=== PATIENT | female | born 1945 | race Caucasian/White ===

== ENCOUNTER 2020-01-25 22:05 | Inpatient (IN) | payer MEDICARE, MEDICAID, SELFPAY ==
--- NOTE | ~2020-01-25 | CT_ITS ---
EXAMINATION: CT brain wo con DATE: 01/25/2020 22:45 INDICATION: Fall with head injury TECHNIQUE: Computed tomography (CT) of the head was performed without intravenous contrast. Sagittal and coronal reconstructions were performed. The mA was adjusted according to patient size. Iterative reconstruction technique was employed. The dose-length product was 681.00 mGy-cm. COMPARISON: head CT dated 02/03/2014 FINDINGS: No fracture. No acute intracranial hemorrhage, acute infarction or abnormal extra axial fluid collect ion. There is mild to moderate scattered white matter hypoattenuation consistent with chronic small v essel ischemic disease. Symmetric prominence of the sulci consistent with moderate age-appropriate di ffuse cerebral volume loss. Ventricles are normal and symmetric. No mass/mass effect. Changes of bila teral intraocular lens replacement. The orbits and mastoid air cells are normal. Mild mucosal thicken ing in the ethmoid sinuses. Intracranial calcified cerebral atherosclerosis is noted. IMPRESSION: 1. No fracture or acute intracranial process. 2. Age-related changes including moderate volume loss and mild to moderate scattered white matter hyp oattenuation consistent with chronic small vessel ischemic disease. Reviewed, dictated and finalized at location A. S DELIVERY DRIVER IMPRESSION: 1. No fracture or acute intracranial process. 2. Age-related changes including moderate volume loss and mild to moderate scat tered white matter hypoattenuation consistent with chronic small vessel ischemi c disease.
--- NOTE | ~2020-01-25 | XR_ITS ---
EXAMINATION: XR surgery orthopedic DATE: 01/26/2020 13:57 INDICATION: Internal fixation intertrochanteric right femoral fracture TECHNIQUE: 4 fluoroscopic spot images of the right femur were obtained during procedure performed by Dr. Rivera. Radiologist was not present for the imaging or procedure. The amount of fluoroscopy time used during this procedure was 3.8 minutes. COMPARISON: 01/25/2020 FINDINGS: Internal reduction and internal fixation of a mildly comminuted intertrochanteric fracture the proxim al right femur with an intratrochanteric kwame, femoral neck dynamic compression screw and distal inter locking screw. Alignment appears essentially anatomic. Mild right hip osteoarthritis. IMPRESSION: 1. Near-anatomic alignment post reduction and internal fixation of a comminuted intratrochanteric fra cture of the proximal right femur. Reviewed, dictated and finalized at location A. H INSPECTOR IMPRESSION: 1. Near-anatomic alignment post reduction and internal fixation of a comminuted intratrochanteric fracture of the proximal right femur.
--- NOTE | ~2020-01-25 | XR_ITS ---
EXAMINATION: XR hip RT 2V w AP pelvis, XR femur RT min 2V DATE: 01/25/2020 23:05 INDICATION: Right hip and femur pain post fall TECHNIQUE: 1. Anteroposterior view of the pelvis and anteroposterior and cross-table lateral views of the right hip were obtained. 2. AP and lateral views of the right femur were obtained on overlapping proximal and distal radiograp hs. COMPARISON: 02/03/2014 FINDINGS: Mildly comminuted intertrochanteric fracture the proximal right femur. This includes an oblique fract ure extending from the greater to the lesser trochanter with minimal varus angulation resulting in ap proximately 3 mm separation of the fracture plane at its medial margin and 8 mm separation at the lat eral margin. Additional fracture line extends across the base of the lesser trochanter with mild prox imal and medial distraction of the lesser trochanteric fragment from which arises a small enthesophyt e. Right femoral head remains normally located within the right acetabulum. Mild bilateral hip osteoa rthritis. No fracture in the more distal right femur. There is additional mild osteoarthritis at the right knee. No evident knee joint effusion. Additional enthesophytes at the anterior margin of the pa tella. Severe lumbar spondylosis. Scattered vascular calcifications in the pelvis and bilateral thigh s. IMPRESSION: 1. Mildly displaced, minimally angulated comminuted intertrochanteric fracture the proximal right fem ur. Reviewed, dictated and finalized at location A. ER SCREEN INSTALLER IMPRESSION: 1. Mildly displaced, minimally angulated comminuted intertrochanteric fracture the proximal right femur.
[2020-01-25 22:06] VITALS: BP 157/57; PULSE 60; RESP 23; O2SAT 100
--- NOTE | 2020-01-25 22:10 | ED.FALL ---
HPI - Fall General Chief Complaint: Fall Stated Complaint: fall Time Seen by Provider: 01/25/20 22:09 Source: patient and RN notes reviewed Mode of arrival: EMS Limitations: no limitations History of Present Illness HPI Narrative: Pt is a 74 y/o female who presents to the ED via EMS with c/o fall happening this evening. She notes that her niece's 120 pound dog ran into her causing her to fall this evening. Pt states that she landed on the rt side of her body and struck her head on the floor during the fall. She denies any LOC during the fall. Pt reports rt hip pain radiating down her rt leg and numbness in her bilateral hands s/p the fall. She states that she is unable to walk due to her pain. Pt denies any buttock pain, neck pain, back pain, CP, or SOB. She notes that she is currently taking an anti-platelet medication as well as ASA. MD complaint: fall Fall from: standing Place fall occurred: home Loss of consciousness: none Symptoms prior to fall: none Context: other (struck by dog) Location of injury: head Location of injury - extremities: Right: thigh (rt hip) Associated symptoms (after fall): numbness (bilateral hands), unable to walk and other (rt hip pain radiating down rt leg) Related Data Allergies Allergy/AdvReac Type Severity Reaction Status Date / Time No Known Allergies Allergy Mild Verified 01/25/20 22:11 Review of Systems Review of Systems: Narrative: EYES: Denies visual changes, redness, or discharge. CARDIOVASCULAR: Denies chest pain, palpitations, or edema. RESPIRATORY: Denies cough or dyspnea. GASTROINTESTINAL: Denies abdominal pain, nausea, vomiting, or diarrhea. MUSCULOSKELETAL: Denies back pain, neck pain, or buttock pain. Reports rt hip pain radiating down rt leg. NEUROLOGIC: Denies headache, weakness, or LOC. Reports head injury, numbness in bilateral hands, and difficulty walking. All systems reviewed & are unremarkable except as noted in HPI and below PMFSH Past Medical History Medical History Anxiety Arthritis Asthma Back pain CAD (coronary artery disease) Cataracts, bilateral CHF (congestive heart failure) Diabetes History of angina HLD (hyperlipidemia) HTN (hypertension) Peripheral neuropathy Pneumonia Surgical History Surgical History History of coronary artery stent placement Hx of cardiac catheterization Hx of cataract surgery bilateral eyes Social History Social History Smoking status: Never smoker Exam Narrative: Exam Narrative: GENERAL: Well-appearing, well-nourished, and in no acute distress. HEAD: Normocephalic, atraumatic. EYES: PERRLA and EOMI. ENT: Nares clear, no rhinorrhea or epistaxis. Mucous membranes moist. NECK: Supple. No cervical spine tenderness. CHEST: Clear to auscultation. No respiratory distress. HEART: Regular rate and rhythm. No murmur heard. Normal peripheral pulses. ABDOMEN: Soft, nontender, nondistended, normal active bowel sounds. EXTREMITIES: Normal range of motion. No edema. Ecchymosis on middle rt digit at proximal interphalangeal joint. Orchestrator strength out of 5. No deformity to the right middle finger. Radial pulse 2+. Pain with internal and external rotation of rt hip. Rt hip tenderness. DP pulse 2+. Intact distal sensation. SPINE: No cervical tenderness. SKIN: Warm, dry, no rash. NEURO: No focal deficits. Alert and oriented. Course Course Emergency Course: Patient presents to the emergency department for evaluation of a fall after she was knocked down by a large dog. Patient states she did hit her head, but denies loss of consciousness. She denies any vision changes, head or neck pain, only reporting right leg pain. No obvious limb length discrepancy. There is pain with internal and external rotation of the right hip. I did not attempt any range of motion exercises with concern for hip fracture. Coco
--- NOTE | 2020-01-25 22:15 | ECG_ITS ---
Measurements Intervals [place] Rate: 60 P: 23 MO: 174 QRS: 20 QRSD: 124 T: 30 QT: 443 QTc: 443 Interpretive Statements ELECTRONIC ATRIAL PACEMAKER RIGHT BUNDLE BRANCH BLOCK BASELINE WANDER- I, II ABNORMAL ECG Electronically Signed On 01-26-2020 9:01:17 SCALE ATTENDANT by Polo Sanchez D.O.
[2020-01-25 22:27] LABS: Glucose Point of Care 140 (65-105)
[2020-01-25] MEDS: ONDANSETRON INJ 4 MG/2 ML VIAL IV PUSH (22:35)
[2020-01-25] MEDS: MORPHINE SULFATE 4 MG/ML INJ IV PUSH (22:35)
[2020-01-25] MEDS: SODIUM CHLORIDE 0.9% IV 1,000 ML 999 ML IV CONT (22:36)
[2020-01-25 22:37] LABS: Basophils Percent Auto 0.3 % (0.2-1.2); Eosinophils Absolute Auto 0.1 K/mm3 (0-0.3); Eosinophils Percent Auto 0.6 % (0-4.4); Hematocrit 32.6 % (37.0-47.0); Hemoglobin 10.3 g/dL (12.0-15.0); Immature Granulocyte Absolute 0.05 K/mm3 (0.00-0.031); Immature Granulocyte Percent A 0.5 % (0-0.5); Lymphocytes Absolute Auto 3.24 K/mm3 (0.9-3.2); Lymphocytes Percent Auto 33.6 % (18.3-44.2); Mean Corpuscular HGB Conc 31.6 g/dl (32-36); Mean Corpuscular Hemoglobin 26.3 pg (26-34); Mean Corpuscular Volume 83.4 fl (80-100); Monocytes Absolute Auto 0.9 K/mm3 (0.1-0.6); Monocytes Percent Auto 8.9 % (2.6-8.5); Neutrophils Absolute Auto 5.4 K/mm3 (1.3-6.7); Neutrophils Percent Auto 56.1 % (45.5-73.1); Platelet Count Result 176 k/mm3 (150-375); Red Blood Count 3.91 M/mm3 (4.2-5.4); Red Cell Distribution Width 18.2 % (11.5-14.5); White Blood Count 9.6 K/mm3 (4.5-10.0)
[2020-01-25 22:47] LABS: Prothrombin Time 12.8 Seconds (11.1-14.7)
[2020-01-25 22:48] LABS: Partial Thromboplastin Time 30.2 SECONDS (22.3-36.8)
[2020-01-25 22:50] LABS: Blood Urea Nitrogen 21 mg/dL (7-17); Calcium 9.4 mg/dL (8.4-10.2); Carbon Dioxide 23 mmol/L (22-30); Chloride 102 mmol/L (98-107); Estimated Glomerular Filt Rate 55; Glucose 124 mg/dL (65-105); Potassium 4.2 mmol/L (3.4-5.0); Sodium 138 mmol/L (137-145)
[2020-01-25 23:21] VITALS: BP 135/56; PULSE 60; RESP 14; O2SAT 98
[2020-01-25 23:55] VITALS: BP 137/95; PULSE 61; RESP 18; O2SAT 98
[2020-01-26] VITALS (15 sets, daily range): BP systolic 116–148; BP diastolic 41–96; PULSE 59–71; RESP 12–21; TEMP 36.3–37.3; O2SAT 94–100; BMI 29.7
--- NOTE | 2020-01-26 00:24 | PC.NURSE ---
this rn called seng, pt rachid, to give update on pt. [phone]
--- NOTE | 2020-01-26 00:56 | ADMGEN ---
This patient, Venus Hung, was admitted to [facility] Surg Room 312-01. Patient/family oriented to hospital policies and general routines including ID bracelet, bed and alarms, visiting hours, pain management, procedures, bathroom and other care routines, personal items, smoking policy, room service/diet, and visiting hours. Valuables list has been completed. Information on how to activate the Rapid Response Team has been discussed. Patient/Family are encouraged to report perceived risks to care and to ask questions if they do not understand what they are told or what they should do.
[2020-01-26] MEDS: MORPHINE SULFATE 4 MG/ML INJ IV PUSH ×3 (01:04→09:27)
[2020-01-26] MEDS: LACTATED RINGERS 1,000 ML 125 ML IV CONT ×2 (01:10→09:26)
--- NOTE | 2020-01-26 08:09 | PM.CNOR ---
Assessment and Plan Assessment and plan (1) Intertrochanteric fracture of right femur: Qualifiers: Encounter type: initial encounter Fracture type: closed Fracture alignment: displaced Qualified Code(s): S72.141A - Displaced intertrochanteric fracture of right femur, initial encounter for closed fracture Code(s): S72.141A - Displaced intertrochanteric fracture of right femur, initial encounter for closed fracture Status: Acute Assessment and Plan: Right hip intertrochanteric fracture status post fall. No prior problems with the right hip. Does have peripheral neuropathy pre-existing. History of diabetes and coronary artery disease. Discussed nonoperative and operative treatment options with the patient. Risks and benefits of each as well as alternatives were reviewed. All of the patient's questions were answered. The risks of surgery reviewed including but not limited to: Neurovascular damage, wound complication, infection, blood clot, pulmonary embolus, stroke, myocardial infarction, and anesthetic risks up to and including . Continued pain and possible dysfunction were explained. Specific risks of the procedure including later recurrence of deformity. No guarantees were offered. If hardware used, discussed risk of failure/ breakage and possible need for removal. If complications occur, the patient understands the need for further treatment, possible further surgery. Patient verbalizes understanding and wishes to proceed. PLAN: Right hip repair with intramedullary hip screw. Patient will require general medical and most likely cardiac clearance. DVT prophylaxis with sequential compression devices. Pain control in the interim. Await medical clearance. (2) Fall: Qualifiers: Encounter type: initial encounter Qualified Code(s): W19.XXXA - Unspecified fall, initial encounter Code(s): W19.XXXA - Unspecified fall, initial encounter Status: Acute (3) CAD (coronary artery disease): Qualifiers: Coronary Disease-Associated Artery/Lesion type: due to calcified coronary lesion Qualified Code(s): I25.10 - Atherosclerotic heart disease of [place] coronary artery without angina pectoris; I25.84 - Coronary atherosclerosis due to calcified coronary lesion Code(s): I25.10 - Atherosclerotic heart disease of [place] coronary artery without angina pectoris Status: Acute History of Present Illness HPI Consult date: 01/26/20 Requesting physician: Angelia Zuluaga MD Consult reason: fracture (Right hip) Chief complaint: right proximal femur fracture Narrative: 74-year-old tripped over walking the dog last evening. Fell on the right side. Injured right hip. Unable to bear weight. Denies head neck or back injury. Denies loss of consciousness. Complains of right hip pain. Worse when she tries to move the leg. Has some numbness in both feet from neuropathy. No new numbness or tingling. Review of Systems Constitutional: Constitutional: Denies fever(s) Eyes: Eyes: Denies blurry vision ENT: Reports Normal hearing present Cardiovascular: Cardiovascular: Denies chest pain and Denies dyspnea Respiratory: Respiratory: Denies dyspnea and Denies wheezing Gastrointestinal: Gastrointestinal: Denies abdominal pain Genitourinary: Genitourinary: Denies urinary urgency Musculoskeletal: Musculoskeletal: Reports as per HPI and Denies numbness Integumentary/Breasts: Skin/Breast: Denies changing lesions and Denies sores Neurologic: Reports Normal hearing present, Denies behavioral changes, Denies confusion, Denies numbness and Denies convulsions Psychiatric: Psychiatric: Denies behavioral changes, Denies confusion and Denies hallucinations Endocrine: Endocrine: Denies heat intolerance Hematologic/Lymphatic: Hematologic/Lymphatic: Denies easy bleeding Allergic/Immunologic: Allergic/Immunologic: Denies wheezing PMFSH Past Medical History Medical History
--- NOTE | 2020-01-26 08:48 | PM.IMHP ---
H&P: HPI History of Present Illness Chief complaint: right proximal femur fracture Narrative: Date and Time of Service of History & Physical: January 26, 2020 at 8:20 a.m. Date and Time of Admission Order: January 26, 2020 at 12:08 a.m. Chief Complaint: Right hip pain after fall. History or Present Illness: Venus Hung is a 74 year old female with extensive coronary artery disease having had 14 stents previously placed as well as pacemaker, diabetes mellitus, hypertension, hyperlipidemia and chronic kidney disease who presented to the emergency room via EMS with complaint of right hip pain and inability to move after fall. Patient reports she was in her usual state of health yesterday. She notes her niece lives with her and has 2 large black Labrador retrievers. Patient reports the 120 lb Labrador shoved her against the wall when apparently she was not getting food out fast enough for him. Patient reports she fell on the floor and hit her head. No loss of consciousness. She reports she instantly had pain in the right hip and was unable to move. She did not feel lightheaded, have chest pain or shortness of breath prior to incident. She is followed by Dr. Nation at [facility] in [place] for her coronary artery disease. She reports she has previously not been allowed to have an elective colonoscopy because of need for anesthesia with her heart disease. In the emergency room, she was noted to have mildly displaced, minimally angulated comminuted intertrochanteric fracture of the proximal right femur. Orthopedics was consulted. Patient was admitted for further evaluation and treatment. Of note, she does report having had some chest heaviness when being moved from the ER stretcher to her current bed. She did use nitroglycerin at that time. No current chest pain or shortness of breath. Review of Systems Review of Systems: All systems reviewed & are unremarkable except as noted in HPI and below Constitutional: Constitutional: Denies chills and Denies fever(s) Eyes: Eyes: Denies blurry vision and Denies diplopia ENT: Denies dysphagia and Denies sore throat Cardiovascular: Cardiovascular: Denies chest pain, Denies leg edema, Denies lightheadedness and Denies palpitations Respiratory: Respiratory: Denies cough, Denies dyspnea and Denies wheezing Gastrointestinal: Gastrointestinal: Denies abdominal pain, Denies constipation, Denies diarrhea, Denies nausea and Denies vomiting Genitourinary: Genitourinary: Denies hematuria, Denies nocturia and Denies dysuria Musculoskeletal: Musculoskeletal: Reports arthralgias (right hip) Integumentary/Breasts: Skin/Breast: Denies rash Psychiatric: Psychiatric: Denies anxiety, Denies confusion and Denies depression Endocrine: Endocrine: Reports no additional endocrine complaints Hematologic/Lymphatic: Hematologic/Lymphatic: Reports no additional hematologic/lymphatic complaints Allergic/Immunologic: Allergic/Immunologic: Reports no additional allergic/immunologic complaints [facility] Past Medical History Medical History (Updated 01/26/20 @ 09:23 by Angelia Suarez MD) Anxiety Arthritis Asthma Back pain CAD (coronary artery disease) Cataracts, bilateral CHF (congestive heart failure) Diabetes History of angina HLD (hyperlipidemia) HTN (hypertension) Intertrochanteric fracture of right femur Peripheral neuropathy Pneumonia Surgical History Surgical History History of coronary artery stent placement Has 14 stents History of permanent cardiac pacemaker placement Hx of cardiac catheterization Hx of cataract surgery bilateral eyes Family History Family History Mother Cervical cancer Sibling Diabetes mellitus Sibling Diabetes mellitus Social History Social History Social History: Patient is .
[2020-01-26] MEDS: ISOSORBIDE MONONITRATE 30 MG TAB.ER.24H PO ×2 (09:30→17:56)
[2020-01-26] MEDS: METOPROLOL SUCCINATE EXT REL 25 MG TABCR PO (09:32)
[2020-01-26 09:42] LABS: Glucose Point of Care 109 (65-105)
--- NOTE | 2020-01-26 10:00 | PM.CNCAR ---
Assessment and Plan Assessment and plan (1) Preoperative clearance: Code(s): Z01.818 - Encounter for other preprocedural examination Status: Acute Assessment and Plan: I did personally speak with her primary director of adult epilepsy Dr. Aleksandar Nation. She does have several stents but last catheterization 2017 showed patent stents. She had a stress test in 2018 showed normal ejection fraction 72% with no ischemia. She has stable symptoms of angina that has not been worsening and she has no heart failure symptoms. At this point I put her at moderate risk of perioperative cardiovascular complications. Continue current cardiac regimen without change. She does not need ischemic workup prior to undergoing her surgery. (2) CAD (coronary artery disease): Qualifiers: Coronary Disease-Associated Artery/Lesion type: due to calcified coronary lesion Qualified Code(s): I25.10 - Atherosclerotic heart disease of [place] coronary artery without angina pectoris; I25.84 - Coronary atherosclerosis due to calcified coronary lesion Code(s): I25.10 - Atherosclerotic heart disease of [place] coronary artery without angina pectoris Status: Acute Assessment and Plan: As detailed above. Continue current meds. Will check a 2D echocardiogram Doppler (3) HLD (hyperlipidemia): Qualifiers: Hyperlipidemia type: unspecified Qualified Code(s): E78.5 - Hyperlipidemia, unspecified Code(s): E78.5 - Hyperlipidemia, unspecified Status: Acute Assessment and Plan: On statin (4) HTN (hypertension): Qualifiers: Hypertension type: essential hypertension Qualified Code(s): I10 - Essential (primary) hypertension Code(s): I10 - Essential (primary) hypertension Status: Acute Assessment and Plan: At goal History of Present Illness History of Present Illness Consult date/time: 01/26/20 10:00 Requesting physician: Angelia Zuluaga MD Consult reason: pre-op evaluation and Other (CAD) Reason For Visit: right proximal femur fracture Narrative: Date of service 01/26/2020 History: Patient is a 74-year-old female who follows with Dr. Aleksandar Nation at [facility]. She has a known history of extensive coronary disease in numerous stenting in the past. She also has a pacemaker, diabetes, hypertension hyperlipidemia chronic kidney disease. I did personally speak with earlier today. She did have a catheterization 2017 which showed patent stents. Past stress tests in 2018 was without ischemia with ejection fraction of 72%. She does have chronic stable angina. Unfortunately yesterday she was pushed down by her Labrador and fell on the floor. Unfortunately she did sustain a mildly displaced angulated inter trochanteric fracture of the right femur. Cardiology consultation was requested for further assessment evaluation of her risk for surgery. Patient does state that she has angina and takes nitroglycerin about every other day. It is stable in occurrence an occurs whenever she is active in doing things such as climbing stairs. It has not worsened in severity nor has it become more frequent with less activity. She also describes no heart failure symptoms. She otherwise denies any syncope, presyncope, paroxysmal nocturnal dyspnea, orthopnea, edema or palpitations. EKG shows atrial paced rhythm with a right bundle branch block but no acute ST or T-wave abnormalities. Review of Systems Review of Systems: All systems reviewed & are unremarkable except as noted in HPI and below Constitutional: Constitutional: Denies fatigue Eyes: Eyes: Denies blurry vision ENT: Denies epistaxis Cardiovascular: Cardiovascular: Reports chest pain and Denies leg edema Respiratory: Respiratory: Denies dyspnea Gastrointestinal: Gastrointestinal: Denies abdominal pain Genitourinary: Genitourinary: Denies hematuria and Denies flank pain Musculoskeletal: Musculoskeletal: Denies back pain
[2020-01-26 11:24] LABS: Hemoglobin A1C 6.7 % (<5.7)
--- NOTE | 2020-01-26 11:54 | PC.NURSE ---
Pt to Pre-op per bed. IV 18 RW SL.
[2020-01-26] MEDS: LACTATED RINGERS 1,000 ML 30 ML IV CONT (12:05)
--- NOTE | 2020-01-26 12:26 | WPDANESEPPF ---
Anes - Initial Pre Proc Eval Procedure: Operation Date: 01/26/20 13:00 Proposed Procedures p Right Hip, Intramedullary Screw(Right) - Terry Rivera MD Date/Time: 01/26/20 12:26 Surgeon: Hoda Charles DO Pre Op Diagnosis: right proximal femur fracture Patient Data Age: 74 Gender: F Height: 5 ft 6 in Weight: 83.7 kg Last Vital Signs Temp 37.2 C 01/26/20 06:00 Pulse 63 01/26/20 09:32 Resp 18 01/26/20 06:00 BP 126/55 L 01/26/20 06:00 Pulse Ox 100 01/26/20 06:00 Allergies Allergy/AdvReac Type Severity Reaction Status Date / Time No Known Allergies Allergy Mild Verified 01/25/20 22:11 Home Medications Medication Instructions Recorded Confirmed Type ascorbic acid (vitamin C) [Vitamin 250 mg PO DAILY 01/26/20 01/26/20 History C] aspirin 81 mg PO DAILY 01/26/20 01/26/20 History atorvastatin 80 mg PO HS 01/26/20 01/26/20 History calcium carbonate-vitamin D3 1 tablet PO DAILY 01/26/20 01/26/20 History [Calcium 600 with Vitamin D3] cholecalciferol (vitamin D3) 125 mcg PO DAILY 01/26/20 01/26/20 History [Vitamin D3] cyanocobalamin (vitamin B-12) 1,000 mcg PO DAILY 01/26/20 01/26/20 History [Vitamin B-12] empagliflozin [Jardiance] 10 mg PO QAM 01/26/20 01/26/20 History gabapentin 100 mg PO DAILY PRN 01/26/20 01/26/20 History isosorbide mononitrate 30 mg PO BID 01/26/20 01/26/20 History metformin 500 mg PO BID 01/26/20 01/26/20 History metoprolol succinate 25 mg PO DAILY 01/26/20 01/26/20 History nitroglycerin 1 spray SUBLINGUAL Q5M PRN 01/26/20 01/26/20 History omega 7-onw-ohg-fish oil [Fish Oil] 1 cap PO BID 01/26/20 01/26/20 History prasugrel 10 mg PO DAILY 01/26/20 01/26/20 History ranolazine 1,000 mg PO Q12H 01/26/20 01/26/20 History Laboratory Tests 01/25/20 01/25/20 01/25/20 22:24 22:31 22:31 WBC 9.6 K/mm3 K/mm3 (4.5-10.0) RBC 3.91 M/mm3 L M/mm3 (4.2-5.4) Hgb 10.3 g/dL L g/dL (12.0-15.0) Hct 32.6 % L % (37.0-47.0) MCV 83.4 fl fl (80-100) MCH 26.3 pg pg (26-34) MCHC 31.6 g/dl L g/dl (32-36) RDW 18.2 % H % (11.5-14.5) Plt Count 176 k/mm3 k/mm3 (150-375) MPV 11.0 fl H fl (7.4-10.4) Immature Gran % (Auto) 0.5 % % (0-0.5) Neut % (Auto) 56.1 % % (45.5-73.1) Lymph % (Auto) 33.6 % % (18.3-44.2) [place] % (Auto) 8.9 % H % (2.6-8.5) Eos % (Auto) 0.6 % % (0-4.4) Baso % (Auto) 0.3 % % (0.2-1.2) Lymph # (Auto) 3.24 K/mm3 H K/mm3 (0.9-3.2) [place] # (Auto) 0.9 K/mm3 H K/mm3 (0.1-0.6) Eos # (Auto) 0.1 K/mm3 K/mm3 (0-0.3) Baso # (Auto) 0.0 K/mm3 K/mm3 (0.0-0.1) Abs Immat Gran (auto) 0.05 K/mm3 H K/mm3 (0.00-0.031) Absolute Neuts (auto) 5.4 K/mm3 K/mm3 (1.3-6.7) Absolute Nucleated RBC 0.0 K/mm3 K/mm3 (0.0-0.012) Nucleated RBC % 0.0 % % (0.0-0.2) PT 12.8 Seconds Seconds (11.1-14.7) INR 1.0 APTT 30.2 SECONDS SECONDS (22.3-36.8) Sodium Potassium Chloride Carbon Dioxide BUN Creatinine Estim Creat Clear Calc Estimated GFR Glucose POC Capillary Glucose 140 mg/dl H mg/dl (65-105) Hemoglobin A1c Calcium 01/25/20 01/25/20 01/26/20 22:31 22:31 09:37 WBC RBC Hgb Hct MCV MCH MCHC RDW Plt Count MPV Immature Gran % (Auto) Neut % (Auto) Lymph % (Auto) [place] % (Auto) Eos % (Auto) Baso % (Auto) Lymph # (Auto) [place] # (Auto) Eos # (Auto) Baso # (Auto) Abs Immat Gran (auto) Abso
[2020-01-26] MEDS: IBUPROFEN IV 800 MG/200 ML 800 MG/200 ML BAG 400 MG IVPB (12:30)
[2020-01-26] MEDS: ceFAZolin 2 GM/D5W 50 ML 2 GM/50 ML BAG IVPB (12:54)
[2020-01-26] MEDS: BUPIVACAINE/EPINEPHRINE 0.5% 30 ML VIAL INFILTRATE (13:35)
--- NOTE | 2020-01-26 14:35 | PM.PROC ---
Procedure Note - Detailed Date of procedure: 01/26/20 Pre-op diagnosis: right proximal femur fracture Right hip intertrochanteric fracture Post-op diagnosis: same Procedure performed: Right hip intramedullary hip screw Description of procedure: Implants used: Sharron natural nail 125 degree 11.5 millimeter diameter 21.5centimeter length nail, lag screw 10.5 millimeter x 90millimeter length. INDICATIONS: This is an 74-year-old -woman who fell sustaining a right hip intertrochanteric femur fracture. Indicated for reduction and intramedullary hip screw fixation, right hip. DESCRIPTION OF PROCEDURE: After informed consent the operative extremity was marked in the preoperative holding area. Patient received intravenous antibiotics. The patient was taken to the operative room, placed in the supine position, general anesthesia induced by the anesthesia team, and was placed on a fracture table with longitudinal traction applied to the right leg. The hip fracture was reduced to near anatomic position and verified with image intensification. A time-out was performed confirming the patient, site of the surgery and plan. The right lower extremity was prepped and draped sterilely from the knee to the iliac crest region using a ChloraPrep skin solution. Incision was made just proximal to greater trochanter down to the subcutaneous tissues. Hemostasis controlled with electrocautery. Blunt dissection through the fascia to the tip of the greater trochanter. A starter awl was placed at the tip of the greater trochanter into the medullary canal of the femur. This was checked with image intensification and was in good position. Intramedullary guide kwame positioned. A one-step hand reaming done proximally. Intramedullary canal was reamed with a 12.5 millimeter flexible reamer. Neck angle selected off of preoperative radiographs temp plating. 125 degree 11.5mm X 21.5cm Nail opened on the back table and assembled. This was then inserted over the guide kwame to the correct depth. Guide kwame removed. Lag screw was then placed with a stab incision over the lateral femur using a 10 blade knife. Blunt dissection down to the lateral side of the bone. Soft tissue protectors placed. Guide pin placed in the center center position of the femoral head and measured. millimeter x 10.5 millimeter lag screw placed to correct depth and verified with image intensification. Traction released from the leg and compression of the fracture performed with the external compression device. Proximal locking screw placed. Distal locking of the nail then performed. Stab incision made lateral distal thigh. Blunt dissection down lateral side of the femur. Soft tissue protector placed. Femur drilled from lateral to medial through the distal nail. Distal femur measured and the appropriate size screw placed. Image intensification confirmed the placement through the locking hole. Final image intensification confirmed reduction of the fracture and placement of the hardware. Wounds then thoroughly irrigated with antibiotic solution. Fascia repaired with 0 Vicryl interrupted suture. Subcutaneous tissue repaired with 00 Vicryl interrupted suture and skin repaired with yoselin. Sterile dressings applied. Patient then awoke from anesthesia, extubated, taken to recovery room stable condition. All sponge, needle and instrument counts correct at the end the case. Implants: Sharron trochanteric nail 11.5 mm diameter, 125 degree angle 21.5 cm length. 90 mm x 10.5 mm lag screw, 35 mm x 5.0 mm distal locking screw, set screw. Anesthesia: GETA Surgeon: Terry Rivera MD Tire Worker: audiology assistant Estimated blood loss (mL): 150 Urine output (mL): 900 Drains: No Packing: No Pathology: none sent Complications: None Condition: stable Disposition: PACU
[2020-01-26 14:36] LABS: Glucose Point of Care 178 (65-105)
--- NOTE | 2020-01-26 15:17 | PC.NURSE ---
Pt returned from post op.
[2020-01-26] MEDS: PRASUGREL HCL 10 MG TABLET PO (16:18)
[2020-01-26] MEDS: ASCORBIC ACID 250 MG TABLET PO (16:18)
[2020-01-26] MEDS: CYANOCOBALAMIN 1,000 MCG TABLET 1000 MCG PO (16:18)
[2020-01-26] MEDS: CHOLECALCIFEROL 1,000 UNIT TABLET 5000 UNITS PO (16:18)
[2020-01-26 16:27] LABS: Glucose Point of Care 159 (65-105)
[2020-01-26] MEDS: OMEGA 3 POLYUNSAT FATTY ACIDS 1 GM CAP PO (17:56)
[2020-01-26] MEDS: DOCUSATE SODIUM 100 MG CAPSULE PO (17:56)
[2020-01-26] MEDS: ATORVASTATIN 40 MG TABLET 80 MG PO (20:32)
[2020-01-26] MEDS: RANOLAZINE 500 MG TAB.ER.12H 1000 MG PO (20:32)
[2020-01-26 21:22] LABS: Glucose Point of Care 294 (65-105)
--- NOTE | 2020-01-27 | ECHO_ITS ---
Patient Info Name: Venus Hung Age: 74 years : 1945 Gender: Female Ht: 66 in Wt: 184 lbs BSA: 2.00 m2 HR: 64 bpm BP: 115 / 85 mmHg Heart Rhythm: Sinus Rhythm Technical Quality: Good Exam Date: 01/27/2020 11:24 AM Exam Location: [facility] Exam Room: [address] [place] [address] Patient Status: Inpatient Admit Date: 01/26/2020 Staff Ordering Physician: Mick Reaves MD Diesel Mechanic Construction: Lorri Castelan RDCS Attending Provider: Hoda Charles DO Referring Physician: Jelly DOBSON; Exam Type: CA echo doppler color flow Study Info Indications - cad s/p surgery Complete two-dimensional, color flow and Doppler transthoracic echocardiogram is performed. Summary 1. Left ventricular systolic function is normal, estimated at 60-65%. 2. There is moderate concentric increased left ventricular wall thickness. 3. Linear artifact in right ventricle suggestive of catheter(s), pacemaker lead(s), or ICD lead(s). 4. Left atrial chamber dimension is moderately enlarged. 5. The mitral valve has normal leaflets and calcified annulus. 6. There is mild aortic valve sclerosis. Left Ventricle Left ventricular systolic function is normal, estimated at 60-65%. There is moderate concentric increased left ventricular wall thickness. The left ventricular diastolic function is grade I diastolic dysfunction. Right Ventricle Right ventricular chamber dimension is normal. Linear artifact in right ventricle suggestive of catheter(s), pacemaker lead(s), or ICD lead(s). Left Atria Left atrial chamber dimension is moderately enlarged. Right Atria Right atrial chamber dimension is normal. Aortic Valve The aortic valve is trileaflet. There is mild aortic valve sclerosis. Pulmonic Valve The pulmonic valve is not well visualized. Mitral Valve The mitral valve has normal leaflets and calcified annulus. Tricuspid Valve The tricuspid valve leaflets are normal. There is mild tricuspid valve regurgitation. Pericardium/Pleural The pericardium appears normal. Aorta The aortic root size at the sinus of Valsalva is normal. Left Ventricular Outflow Tract Name Value Normal LVOT 2D LVOT Diameter 2.0 cm LVOT Doppler LVOT Peak Gradient 5 mmHg LVOT Mean Gradient 3 mmHg LVOT VTI 24 cm LVOT VTI/AV VTI Ratio 0.9 LVOT Stroke Volume 75 ml LVOT CO 15.6 l/min LVOT CI 7.8 l/min/m2 Pulmonic Valve Name Value Normal PV Doppler PV Peak Gradient 5 mmHg Mitral Valve Name Value Normal
[2020-01-27 02:00] VITALS: BP 118/85; PULSE 64; RESP 18; TEMP 36.3; O2SAT 99
[2020-01-27 06:00] VITALS: BP 103/48; PULSE 61; RESP 18; TEMP 36.5; O2SAT 98
[2020-01-27 06:06] LABS: Basophils Percent Auto 0.2 % (0.2-1.2); Eosinophils Percent Auto 0.2 % (0-4.4); Hematocrit 27.4 % (37.0-47.0); Hemoglobin 8.7 g/dL (12.0-15.0); Immature Granulocyte Absolute 0.05 K/mm3 (0.00-0.031); Immature Granulocyte Percent A 0.6 % (0-0.5); Lymphocytes Absolute Auto 1.87 K/mm3 (0.9-3.2); Lymphocytes Percent Auto 21.1 % (18.3-44.2); Mean Corpuscular HGB Conc 31.8 g/dl (32-36); Mean Corpuscular Hemoglobin 26.3 pg (26-34); Mean Corpuscular Volume 82.8 fl (80-100); Mean Platelet Volume 11.6 fl (7.4-10.4); Monocytes Absolute Auto 0.9 K/mm3 (0.1-0.6); Monocytes Percent Auto 9.6 % (2.6-8.5); Neutrophils Absolute Auto 6.1 K/mm3 (1.3-6.7); Neutrophils Percent Auto 68.3 % (45.5-73.1); Platelet Count Result 156 k/mm3 (150-375); Red Blood Count 3.31 M/mm3 (4.2-5.4); White Blood Count 8.9 K/mm3 (4.5-10.0)
[2020-01-27 06:08] LABS: Blood Urea Nitrogen 23 mg/dL (7-17); Calcium 8.6 mg/dL (8.4-10.2); Carbon Dioxide 26 mmol/L (22-30); Chloride 102 mmol/L (98-107); Estimated CRCL calculation 49 ml/min; Estimated Glomerular Filt Rate 55; Glucose 173 mg/dL (65-105); Magnesium 1.9 mg/dL (1.6-2.3); Potassium 4.3 mmol/L (3.4-5.0); Sodium 138 mmol/L (137-145)
[2020-01-27] MEDS: PRASUGREL HCL 10 MG TABLET PO (08:47)
[2020-01-27] MEDS: CHOLECALCIFEROL 1,000 UNIT TABLET 5000 UNITS PO (08:47)
[2020-01-27] MEDS: CYANOCOBALAMIN 1,000 MCG TABLET 1000 MCG PO (08:48)
[2020-01-27] MEDS: RANOLAZINE 500 MG TAB.ER.12H 1000 MG PO ×2 (08:48→20:33)
[2020-01-27] MEDS: ASPIRIN 325 MG ENTERIC TABLET 650 MG PO (08:48)
[2020-01-27] MEDS: DOCUSATE SODIUM 100 MG CAPSULE PO ×2 (08:48→18:44)
[2020-01-27] MEDS: ASCORBIC ACID 250 MG TABLET PO (08:48)
[2020-01-27] MEDS: OMEGA 3 POLYUNSAT FATTY ACIDS 1 GM CAP PO ×2 (08:48→18:44)
[2020-01-27] MEDS: ISOSORBIDE MONONITRATE 30 MG TAB.ER.24H PO ×2 (08:48→18:53)
[2020-01-27 08:50] VITALS: PULSE 60
[2020-01-27] MEDS: METOPROLOL SUCCINATE EXT REL 25 MG TABCR PO (08:50)
[2020-01-27 09:02] LABS: Glucose Point of Care 133 (65-105)
--- NOTE | 2020-01-27 09:46 | PM.PNCARD ---
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 Aelksandar Nation. She does have several stents but last catheterization 2016 showed patent stents. She had a stress test in 2018 showed normal ejection fraction 72% with no ischemia. She has stable symptoms of angina that has not been worsening and she has no heart failure symptoms. Post Right hip trochanteric nail 01/26/2020. (2) CAD (coronary artery disease): Qualifiers: Coronary Disease-Associated Artery/Lesion type: due to calcified coronary lesion Qualified Code(s): I25.10 - Atherosclerotic heart disease of [place] coronary artery without angina pectoris; I25.84 - Coronary atherosclerosis due to calcified coronary lesion Code(s): I25.10 - Atherosclerotic heart disease of [place] coronary artery without angina pectoris Status: Acute Assessment and Plan: As detailed above. Continue aspirin, atorvastatin, isosorbide mononitrate, Metoprolol succinate, Effient, ranolazine. She was reassured that she has nitroglycerin spray available should she need p.r.n. nitroglycerin. She transferred back from the chair to the bed with some difficulty however did not experience any chest discomfort at that time. Echocardiogram was ordered however she went to surgery before this could be performed. (3) HLD (hyperlipidemia): Qualifiers: Hyperlipidemia type: unspecified Qualified Code(s): E78.5 - Hyperlipidemia, unspecified Code(s): E78.5 - Hyperlipidemia, unspecified Status: Acute Assessment and Plan: On statin (4) HTN (hypertension): Qualifiers: Hypertension type: essential hypertension Qualified Code(s): I10 - Essential (primary) hypertension Code(s): I10 - Essential (primary) hypertension Status: Acute Assessment and Plan: At goal Additional Plan Unless there is a significant abnormality on the echocardiogram cardiology does not need to follow her daily. Please call if Cardiology as needed. She will follow up with her primary votator machine operator Dr. Nation after discharge. Plan discussed Dr. Romero [id number] 01/27/2020 Time Spent With Patient Time with patient: 15 - 25 minutes Subjective Date/time seen: 01/27/20 09:46 Interval history: Follow-up for: Stable chronic angina, coronary artery disease with previous intervention, hyperlipidemia, hypertension Date of service: 01/27/2020 Subjective: Some hip pain. Has been up in the chair for a few hours. Denied any chest discomfort, shortness of breath or lightheadedness. Frustrated that she cannot have her nitroglycerin tablets at her bedside Review of Systems Constitutional: Constitutional: Denies excessive sweating, Denies fatigue and Denies headache(s) Eyes: Eyes: Denies blurry vision ENT: Denies headache(s), Denies lip swelling and Denies epistaxis Cardiovascular: Cardiovascular: Reports chest pain, Denies leg edema and Denies dyspnea Respiratory: Respiratory: Denies dyspnea Gastrointestinal: Gastrointestinal: Denies abdominal pain Genitourinary: Genitourinary: Denies hematuria and Denies flank pain Musculoskeletal: Musculoskeletal: Denies back pain Integumentary/Breasts: Skin/Breast: Denies dry skin Neurologic: Denies confusion and Denies headache(s) Psychiatric: Psychiatric: Denies anxiety and Denies confusion Endocrine: Endocrine: Denies excessive sweating and Denies fatigue Hematologic/Lymphatic: Hematologic/Lymphatic: Denies easy bleeding and Denies easy bruising Allergic/Immunologic: Allergic/Immunologic: Denies lip swelling Exam Const: General: cooperative and uncomfortable Nutritional Appearance: well nourished Orientation/consciousness: patient orie
--- NOTE | 2020-01-27 11:15 | PM.PNORT ---
Progress Note: A&P Assessment and Plan (1) Intertrochanteric fracture of right femur: Onset Date: 01/26/20 Qualifiers: Encounter type: initial encounter Fracture type: closed Fracture alignment: displaced Qualified Code(s): S72.141A - Displaced intertrochanteric fracture of right femur, initial encounter for closed fracture Code(s): S72.141A - Displaced intertrochanteric fracture of right femur, initial encounter for closed fracture Status: Acute Assessment and Plan: postoperative day 1. Right hip trochanteric nail. Patient states pain improved compared to preop. Up in chair this morning. Neurovascular intact. Doing well. Continue PT/ OT. Weight bear as tolerated. Aspirin for DVT prophylaxis. Placement when medically stable. Subjective Subjective Date/Time Seen: 01/27/20 08:15 Patient states right hip feels better. Up in chair this morning. Exam Const: General: No confusion Orientation/consciousness: patient oriented x3 and No confusion HENMT: Head: normal to inspection, normocephalic and atraumatic Eyes: Conjunctivae: conjunctivae normal Sclera: sclerae normal Neck: Neck: supple and nontender Chest: Chest palpation & inspection: normal inspection of the chest Resp: Effort & Inspection: normal respiratory effort and no audible wheezes Cardio: Rate: regular rate Rhythm: regular rhythm GI: GI Palp: No abdominal tenderness and Yes Soft to palpation : General: Yes deferred Skin: General skin exam: no rashes or lesions noted Neuro: General: patient oriented x3 and No confusion Extrem: General: capillary refill normal Right upper extremity: normal to inspection Left upper extremity: normal to inspection Right lower extremity: hip/thigh Details: normal to inspection ( incisions clean dry and intact. Dressings in place, dry.), tenderness Location: of the hip Location: laterally, swelling Location: at the hip ( Mild), ecchymosis ( mild lateral hip) and other ( Muscle compartments soft), ankle ( able to actively flex and extend ankle) Details: no tenderness and no swelling and foot Details: toes with normal ROM, vascular exam Details: dorsalis pedis pulse present and normal capillary refill, tendon exam Details: active flexion normal and active extension normal and motor-sensory exam Details: light-touch normal Location: in all toes; no tenderness Left lower extremity: normal to inspection, hip/thigh, lower leg, ankle (no calf tenderness) and foot Psych: Affect: normal affect Objective Data Vital Signs Vital Signs: Vital Signs - 24 hr 01/26/20 14:07 01/26/20 14:20 01/26/20 14:35 Temperature 99.1 F Pulse Rate 71 61 63 Respiratory Rate 15 12 14 Blood Pressure 148/53 H 122/43 L 117/48 L Pulse Oximetry 98 100 100 01/26/20 14:50 01/26/20 15:05 01/26/20 15:15 Temperature 98.1 F Pulse Rate 60 60 60 Respiratory Rate 12 12 18 Blood Pressure 117/43 L 118/45 L 121/96 H Pulse Oximetry 97 94 98 01/26/20 15:30 01/26/20 16:00 01/26/20 17:00 Temperature 98.1 F 98.1 F 98.1 F Pulse Rate 61 61 62 Respiratory Rate 18 16 18 Blood Pressure 127/41 L 127/46 L 128/55 L Pulse Oximetry 94 94 97 01/26/20 18:30 01/26/20 22:00 01/27/20 02:00 Temperature 97.9 F 97.4 F L 97.4 F L Pulse Rate 68 59 L 64 Respiratory Rate 18 18 18 Blood Pressure 129/54 L 116/41 L 118/85 Pulse Oximetry 98 96 99 01/27/20 06:00 01/27/20 08:50 Temperature 97.7 F Pulse Rate 61 60 Respiratory Rate 18 Blood Pressure 103/48 L Pulse Oximetry 98 Intake/Output Intake/Output: Intake & Output 01/24/20 01/25/20 01/26/20 01/27/20 23:59 23:59 23:59 23:59 Intake Total 1940 500 Output Total 1400 1800 Balance 540 -1300 Meds/Results Medications: Active Medications Generic Name Dose Route Start Last Admin Trade Name Freq PRN Reason Stop Dose Admin Hydrocodone Bitart/Acetaminophen 1 tab 01/26/20 14:25 01/27/20 08:48 [place] 5-325 Mg PO 1 tab Q3H PRN Administ
[2020-01-27 11:44] LABS: Glucose Point of Care 222 (65-105)
--- NOTE | 2020-01-27 13:09 | PM.IMPN ---
Progress Note: A&P Assessment and Plan (1) Intertrochanteric fracture of right femur: Onset Date: 01/26/20 Qualifiers: Encounter type: initial encounter Fracture alignment: displaced Fracture type: closed Qualified Code(s): S72.141A - Displaced intertrochanteric fracture of right femur, initial encounter for closed fracture Code(s): S72.141A - Displaced intertrochanteric fracture of right femur, initial encounter for closed fracture Status: Acute Assessment and Plan: Dr. Rivera consulted and appreciate input. Now S/P repair with intramedullary hip screw on 01/26/2020. POD #1. Postoperative management per Orthopedics. Continue PT/OT. Anticipate will need rehab at discharge. (2) CAD (coronary artery disease): Qualifiers: Coronary Disease-Associated Artery/Lesion type: due to calcified coronary lesion Qualified Code(s): I25.10 - Atherosclerotic heart disease of [place] coronary artery without angina pectoris; I25.84 - Coronary atherosclerosis due to calcified coronary lesion Code(s): I25.10 - Atherosclerotic heart disease of [place] coronary artery without angina pectoris Status: Acute Assessment and Plan: Known significant disease with patient having 14 stents previously placed. Cardiology consulted prior to surgery and appreciate input. Per records from regular rivet tosser, Dr. Natino, EF 72% in 2018. Will continue home ASA, atorvastatin, metoprolol, Ranexa, Imdur and Effient. Will continue monitor clinically. (3) HTN (hypertension): Qualifiers: Hypertension type: essential hypertension Qualified Code(s): I10 - Essential (primary) hypertension Code(s): I10 - Essential (primary) hypertension Status: Acute Assessment and Plan: Blood pressure reviewed on 01/27/2020. Remains stable. Continue to monitor on metoprolol and Imdur. (4) Diabetes: Qualifiers: Chronic kidney disease stage: stage 3 (moderate) Diabetes mellitus complication detail: with chronic kidney disease Diabetes mellitus complication status: with kidney complications Diabetes mellitus terminal gauger insulin use: without intermediate use Diabetes mellitus type: type 2 Qualified Code(s): E11.22 - Type 2 diabetes mellitus with diabetic chronic kidney disease; N18.3 - Chronic kidney disease, stage 3 (moderate) Code(s): E11.9 - Type 2 diabetes mellitus without complications Status: Acute Assessment and Plan: Hemoglobin A1c 6.7. Home during nature and metformin remain on. Glucose reviewed on 01/27/2020 and presently controlled. Will continue to monitor. Sliding scale insulin available needed. (5) Fall: Qualifiers: Encounter type: initial encounter Qualified Code(s): W19.XXXA - Unspecified fall, initial encounter Code(s): W19.XXXA - Unspecified fall, initial encounter Status: Acute Assessment and Plan: Continue PT/OT. (6) Anemia: Qualifiers: Anemia type: unspecified type Qualified Code(s): D64.9 - Anemia, unspecified Code(s): D64.9 - Anemia, unspecified Status: Acute Assessment and Plan: Known chronic anemia. Does have acute component related to acute blood loss. Hemoglobin 8.7 today which is within expected decrease after surgery. Will continue to follow. Only transfuse if needed. (7) HLD (hyperlipidemia): Qualifiers: Hyperlipidemia type: unspecified Qualified Code(s): E78.5 - Hyperlipidemia, unspecified Code(s): E78.5 - Hyperlipidemia, unspecified Status: Acute Assessment and Plan: Home atorvastatin and fish oil restarted after surgery. (8) DVT prophylaxis: Code(s): Z29.9 - Encounter for prophylactic measures, unspecified Status: Acute Assessment and Plan: SCDs. Also on home Effient. Time Spent With Patient Time with patient: 15 - 25 minutes Subjective Date/time seen: 01/27/20 13:09 Interval history: Benjamín
[2020-01-27 14:51] LABS: Glucose Point of Care 164 (65-105)
[2020-01-27 18:11] LABS: Glucose Point of Care 164 (65-105)
[2020-01-27] MEDS: ATORVASTATIN 40 MG TABLET 80 MG PO (20:33)
[2020-01-27] MEDS: GABAPENTIN 100 MG CAPSULE PO (20:35)
[2020-01-27 21:42] LABS: Glucose Point of Care 220 (65-105)
[2020-01-27 22:00] VITALS: BP 139/72; PULSE 74; RESP 18; TEMP 36.6; O2SAT 98
[2020-01-28 06:00] VITALS: BP 122/41; PULSE 62; RESP 18; TEMP 36.4; O2SAT 100
[2020-01-28 06:25] LABS: Hematocrit 25.6 % (37.0-47.0); Hemoglobin 8.2 g/dL (12.0-15.0); Mean Corpuscular Hemoglobin 26.3 pg (26-34); Mean Corpuscular Volume 82.1 fl (80-100); Mean Platelet Volume 11.6 fl (7.4-10.4); Platelet Count Result 129 k/mm3 (150-375); Red Blood Count 3.12 M/mm3 (4.2-5.4); Red Cell Distribution Width 18.4 % (11.5-14.5); White Blood Count 8.2 K/mm3 (4.5-10.0)
[2020-01-28 06:37] LABS: Blood Urea Nitrogen 32 mg/dL (7-17); Calcium 8.5 mg/dL (8.4-10.2); Carbon Dioxide 26 mmol/L (22-30); Chloride 104 mmol/L (98-107); Estimated CRCL calculation 36 ml/min; Estimated Glomerular Filt Rate 37; Glucose 156 mg/dL (65-105); Potassium 3.9 mmol/L (3.4-5.0); Sodium 137 mmol/L (137-145)
[2020-01-28 07:46] VITALS: O2SAT 96
[2020-01-28] MEDS: CYANOCOBALAMIN 1,000 MCG TABLET 1000 MCG PO (08:16)
[2020-01-28] MEDS: ISOSORBIDE MONONITRATE 30 MG TAB.ER.24H PO (08:16)
[2020-01-28] MEDS: DOCUSATE SODIUM 100 MG CAPSULE PO ×2 (08:17→17:47)
[2020-01-28] MEDS: CHOLECALCIFEROL 1,000 UNIT TABLET 5000 UNITS PO (08:17)
[2020-01-28] MEDS: OMEGA 3 POLYUNSAT FATTY ACIDS 1 GM CAP PO ×2 (08:17→17:48)
[2020-01-28] MEDS: ASPIRIN 325 MG ENTERIC TABLET 650 MG PO (08:19)
[2020-01-28] MEDS: RANOLAZINE 500 MG TAB.ER.12H 1000 MG PO ×2 (08:19→22:39)
[2020-01-28 08:20] VITALS: PULSE 72
[2020-01-28] MEDS: METOPROLOL SUCCINATE EXT REL 25 MG TABCR PO (08:20)
[2020-01-28] MEDS: ASCORBIC ACID 250 MG TABLET PO (08:20)
[2020-01-28] MEDS: PRASUGREL HCL 10 MG TABLET PO (08:21)
[2020-01-28 09:16] LABS: Glucose Point of Care 154 (65-105)
[2020-01-28 12:39] LABS: Glucose Point of Care 197 (65-105)
[2020-01-28 14:35] VITALS: BP 102/43; PULSE 68; RESP 18; TEMP 36.8; O2SAT 97
--- NOTE | 2020-01-28 16:59 | PM.IMPN ---
Progress Note: A&P Assessment and Plan (1) Intertrochanteric fracture of right femur: Onset Date: 01/26/20 Qualifiers: Encounter type: initial encounter Fracture type: closed Fracture alignment: displaced Qualified Code(s): S72.141A - Displaced intertrochanteric fracture of right femur, initial encounter for closed fracture Code(s): S72.141A - Displaced intertrochanteric fracture of right femur, initial encounter for closed fracture Status: Acute Assessment and Plan: Dr. Rivera consulted and appreciate input. Now S/P repair with intramedullary hip screw on 01/26/2020. POD #2. Postoperative management per Orthopedics. Continue PT/OT. Anticipate will need rehab at discharge. Date of Service: 01/28/2020. Admitted with right intertrochanteric femur fracture. Now S/P surgery on 01/26/2020. POD #2, Only has pain in right hip with movement. Did participate in the PT, patient was to go home have a PT as outpatient, no chest pain or pressure. No shortness of breath. No abdominal pain. Patient daughter is present was a nurse and caregiver. (2) CAD (coronary artery disease): Qualifiers: Coronary Disease-Associated Artery/Lesion type: due to calcified coronary lesion Qualified Code(s): I25.10 - Atherosclerotic heart disease of [place] coronary artery without angina pectoris; I25.84 - Coronary atherosclerosis due to calcified coronary lesion Code(s): I25.10 - Atherosclerotic heart disease of [place] coronary artery without angina pectoris Status: Acute Assessment and Plan: Known significant disease with patient having 14 stents previously placed. Cardiology consulted prior to surgery and appreciate input. 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 Nation, EF 72% in 2018. Will continue home ASA, atorvastatin, metoprolol, Ranexa, Imdur and Effient. Will continue monitor clinically. (3) HTN (hypertension): Qualifiers: Hypertension type: essential hypertension Qualified Code(s): I10 - Essential (primary) hypertension Code(s): I10 - Essential (primary) hypertension Status: Acute Assessment and Plan: Blood pressure reviewed on 01/28/2020. Remains stable. Continue to monitor on metoprolol and Imdur. (4) Diabetes: Qualifiers: Diabetes mellitus type: type 2 Diabetes mellitus snf insulin use: without terminal computer operator use Diabetes mellitus complication status: with kidney complications Diabetes mellitus complication detail: with chronic kidney disease Chronic kidney disease stage: stage 3 (moderate) Qualified Code(s): E11.22 - Type 2 diabetes mellitus with diabetic chronic kidney disease; N18.3 - Chronic kidney disease, stage 3 (moderate) Code(s): E11.9 - Type 2 diabetes mellitus without complications Status: Acute Assessment and Plan: Hemoglobin A1c 6.7. Home during nature and metformin remain on. Glucose reviewed on 01/28/2020 and presently controlled. Will continue to monitor. Sliding scale insulin available needed. (5) Fall: Qualifiers: Encounter type: initial encounter Qualified Code(s): W19.XXXA - Unspecified fall, initial encounter Code(s): W19.XXXA - Unspecified fall, initial encounter Status: Acute Assessment and Plan: Continue PT/OT. (6) Anemia: Qualifiers: Anemia type: unspecified type Qualified Code(s): D64.9 - Anemia, unspecified Code(s): D64.9 - Anemia, unspecified Status: Acute Assessment and Plan: Known chronic anemia. Does have acute component related to acute blood loss. Hemoglobin 8.2 today which is within expected decrease after surgery. Will continue to follow. Only transfuse if needed. (7) HLD (hyperlipidemia): Qualifiers: Hyperlipidemia type: unspecified Qualified Code(s): E78.5 - Hyperlipidemia, unspecified Code(s): E78.5 - Hyperlipidemia, unspecified Status: Acute Assessment an
[2020-01-28 18:03] LABS: Glucose Point of Care 175 (65-105)
[2020-01-28] MEDS: ATORVASTATIN 40 MG TABLET 80 MG PO (22:39)
[2020-01-28 22:54] LABS: Glucose Point of Care 209 (65-105)
[2020-01-29 06:00] VITALS: BP 135/62; PULSE 61; RESP 18; TEMP 37.1; O2SAT 99
[2020-01-29 08:11] LABS: Glucose Point of Care 188 (65-105)
[2020-01-29] MEDS: CHOLECALCIFEROL 1,000 UNIT TABLET 5000 UNITS PO (08:53)
[2020-01-29 08:54] VITALS: PULSE 68
[2020-01-29] MEDS: RANOLAZINE 500 MG TAB.ER.12H 1000 MG PO ×2 (08:54→20:49)
[2020-01-29] MEDS: CYANOCOBALAMIN 1,000 MCG TABLET 1000 MCG PO (08:54)
[2020-01-29] MEDS: METOPROLOL SUCCINATE EXT REL 25 MG TABCR PO (08:54)
[2020-01-29] MEDS: OMEGA 3 POLYUNSAT FATTY ACIDS 1 GM CAP PO ×2 (08:54→17:18)
[2020-01-29] MEDS: ASCORBIC ACID 250 MG TABLET PO (08:55)
[2020-01-29] MEDS: DOCUSATE SODIUM 100 MG CAPSULE PO ×2 (08:56→17:17)
[2020-01-29] MEDS: GABAPENTIN 100 MG CAPSULE PO (08:56)
[2020-01-29] MEDS: ASPIRIN 325 MG ENTERIC TABLET 650 MG PO (08:56)
[2020-01-29] MEDS: ISOSORBIDE MONONITRATE 30 MG TAB.ER.24H PO ×2 (08:56→17:17)
[2020-01-29] MEDS: PRASUGREL HCL 10 MG TABLET PO (08:57)
--- NOTE | 2020-01-29 09:45 | PM.PNORT ---
Progress Note: A&P Assessment and Plan (1) Intertrochanteric fracture of right femur: Onset Date: 01/26/20 Qualifiers: Encounter type: initial encounter Fracture type: closed Fracture alignment: displaced Qualified Code(s): S72.141A - Displaced intertrochanteric fracture of right femur, initial encounter for closed fracture Code(s): S72.141A - Displaced intertrochanteric fracture of right femur, initial encounter for closed fracture Status: Acute Assessment and Plan: POD #3 RT hip IMHS Pain well controlled. New shoulder pain- may be related to use of walker Dressing changes PT/OT- wbat would like to go home with home health if medically cleared and passes PT Subjective Subjective Date/Time Seen: 01/29/20 09:45 RT hip pain with weightbearing. LT shoulder pain over past day Exam Const: General: No confusion Orientation/consciousness: patient oriented x3 and No confusion HENMT: Head: normal to inspection, normocephalic and atraumatic Eyes: Conjunctivae: conjunctivae normal Sclera: sclerae normal Neck: Neck: supple and nontender Chest: Chest palpation & inspection: normal inspection of the chest Resp: Effort & Inspection: normal respiratory effort and no audible wheezes Cardio: Rate: regular rate Rhythm: regular rhythm GI: GI Palp: No abdominal tenderness and Yes Soft to palpation : General: Yes deferred Skin: General skin exam: no rashes or lesions noted Neuro: General: patient oriented x3 and No confusion Extrem: General: capillary refill normal Right upper extremity: normal to inspection Left upper extremity: normal to inspection Right lower extremity: hip/thigh Details: normal to inspection ( incisions clean dry and intact. Dressings in place, dry.), tenderness Location: of the hip Location: laterally, swelling Location: at the hip ( Mild), ecchymosis ( mild lateral hip) and other ( Muscle compartments soft), ankle ( able to actively flex and extend ankle) Details: normal ROM (able to flex/ext ankle); no tenderness and no swelling and foot Details: toes with normal ROM, vascular exam Details: dorsalis pedis pulse present and normal capillary refill, tendon exam Details: active flexion normal Location: of all toes and active extension normal Location: of all toes and motor-sensory exam Details: light-touch normal Location: in all toes; no tenderness Left lower extremity: normal to inspection, hip/thigh, lower leg, ankle (no calf tenderness) and foot Psych: Affect: normal affect Objective Data Vital Signs Vital Signs: Vital Signs - 24 hr 01/28/20 14:35 01/29/20 06:00 01/29/20 08:54 Temperature 98.3 F 98.7 F Pulse Rate 68 61 68 Respiratory Rate 18 18 Blood Pressure 102/43 L 135/62 Pulse Oximetry 97 99 Intake/Output Intake/Output: Intake & Output 01/26/20 01/27/20 01/28/20 01/29/20 23:59 23:59 23:59 23:59 Intake Total 1940 2200 1970 350 Output Total 1400 2024 902 1300 Balance 071 825 1228 -950 Meds/Results Medications: Active Medications Generic Name Dose Route Start Last Admin Trade Name Freq PRN Reason Stop Dose Admin Hydrocodone Bitart/Acetaminophen 1 tab 01/26/20 14:25 01/28/20 05:03 Blaine 5-325 Mg PO 1 tab Q3H PRN Administration Pain Rated 4-6 Al Hydrox/Mg Hydrox/Simethicone 30 ml 01/26/20 14:25 Mylanta PO Q6H PRN Indigestion Ascorbic Acid 250 mg 01/26/20 09:00 01/29/20 08:55 Vitamin C PO 250 mg DAILY SIMRAN Administration Aspirin 650 mg 01/27/20 09:00 01/29/20 08:56 Aspirin Ec PO 650 mg DAILY SIMRAN Administration Atorvastatin Calcium 80 mg 01/26/20 21:00 01/28/20 22:39 Lipitor PO 80 mg HS SIMRAN Administration Bisacodyl 10 mg 01/26/20 14:25 Dulcolax Suppository RECTAL DAILY PRN Constipation Calcium Carbonate 500 mg 01/26/20 09:00 01/29/20 08:56 Os-Umesh 500 +D Tablet PO 02/26/20 09:01 500 mg DAILY SIMRAN Administration Cyanocobalamin 1,000 mc
[2020-01-29] MEDS: TRAMADOL HCL 50 MG TABLET PO (11:38)
[2020-01-29 12:32] LABS: Glucose Point of Care 173 (65-105)
[2020-01-29 14:35] VITALS: BP 122/44; PULSE 61; RESP 16; TEMP 36.2; O2SAT 100
--- NOTE | 2020-01-29 15:38 | PM.IMPN ---
Progress Note: A&P Assessment and Plan (1) Intertrochanteric fracture of right femur: Onset Date: 01/26/20 Qualifiers: Encounter type: initial encounter Fracture alignment: displaced Fracture type: closed Qualified Code(s): S72.141A - Displaced intertrochanteric fracture of right femur, initial encounter for closed fracture Code(s): S72.141A - Displaced intertrochanteric fracture of right femur, initial encounter for closed fracture Status: Acute Assessment and Plan: Dr. Rivera consulted and appreciate input. Now S/P repair with intramedullary hip screw on 01/26/2020. POD #3. Postoperative management per Orthopedics. Continue PT/OT. Patient preference is to go home with home health. Medically stable at this point for discharge once disposition arrangements completed. (2) CAD (coronary artery disease): Qualifiers: Coronary Disease-Associated Artery/Lesion type: due to calcified coronary lesion Qualified Code(s): I25.10 - Atherosclerotic heart disease of [place] coronary artery without angina pectoris; I25.84 - Coronary atherosclerosis due to calcified coronary lesion Code(s): I25.10 - Atherosclerotic heart disease of [place] coronary artery without angina pectoris Status: Acute Assessment and Plan: Known significant disease with patient having 14 stents previously placed. Cardiology consulted prior to surgery and appreciate input. Per records from regular silk finisher, Dr. Nation, EF 72% in 2018. Will continue home ASA, atorvastatin, metoprolol, Ranexa, Imdur and Effient. Left shoulder pain most likely musculoskeletal due to walker use and not cardiac in origin with patient having no chest pain or shortness of breath with exertion. Will continue to monitor clinically. (3) HTN (hypertension): Qualifiers: Hypertension type: essential hypertension Qualified Code(s): I10 - Essential (primary) hypertension Code(s): I10 - Essential (primary) hypertension Status: Acute Assessment and Plan: Blood pressure reviewed on 01/29/2020 and remains stable. Will continue to monitor on metoprolol and Imdur. (4) Diabetes: Qualifiers: Chronic kidney disease stage: stage 3 (moderate) Diabetes mellitus complication detail: with chronic kidney disease Diabetes mellitus complication status: with kidney complications Diabetes mellitus vermin exterminator insulin use: without vermin exterminator use Diabetes mellitus type: type 2 Qualified Code(s): E11.22 - Type 2 diabetes mellitus with diabetic chronic kidney disease; N18.3 - Chronic kidney disease, stage 3 (moderate) Code(s): E11.9 - Type 2 diabetes mellitus without complications Status: Acute Assessment and Plan: Hemoglobin A1c 6.7. Home Jardiance and metformin remain on hold. Glucose reviewed on 01/29/2020 and controlled. Sliding scale insulin available as needed. Will continue to monitor. (5) Fall: Qualifiers: Encounter type: initial encounter Qualified Code(s): W19.XXXA - Unspecified fall, initial encounter Code(s): W19.XXXA - Unspecified fall, initial encounter Status: Acute Assessment and Plan: Continue PT/OT. (6) Anemia: Qualifiers: Anemia type: unspecified type Qualified Code(s): D64.9 - Anemia, unspecified Code(s): D64.9 - Anemia, unspecified Status: Acute Assessment and Plan: Known chronic anemia. Does have acute component related to acute blood loss. Hemoglobin 8.2 on 01/28/2020 and stable. Follow periodically. (7) HLD (hyperlipidemia): Qualifiers: Hyperlipidemia type: unspecified Qualified Code(s): E78.5 - Hyperlipidemia, unspecified Code(s): E78.5 - Hyperlipidemia, unspecified Status: Acute Assessment and Plan: Continue home atorvastatin and fish oil. (8) DVT prophylaxis: Code(s): Z29.9 - Encounter for prophylactic measures, unspecified Status: Acute
[2020-01-29 17:12] LABS: Glucose Point of Care 160 (65-105)
[2020-01-29] MEDS: ATORVASTATIN 40 MG TABLET 80 MG PO (20:49)
[2020-01-29 21:01] LABS: Glucose Point of Care 194 (65-105)
[2020-01-29 22:00] VITALS: BP 128/41; PULSE 59; RESP 16; TEMP 36.4; O2SAT 100
[2020-01-30 06:00] VITALS: BP 109/94; PULSE 60; RESP 16; TEMP 36.5; O2SAT 99
[2020-01-30 06:09] LABS: Hematocrit 26.8 % (37.0-47.0); Hemoglobin 8.5 g/dL (12.0-15.0)
[2020-01-30 06:23] LABS: Blood Urea Nitrogen 28 mg/dL (7-17); Calcium 8.5 mg/dL (8.4-10.2); Carbon Dioxide 28 mmol/L (22-30); Chloride 101 mmol/L (98-107); Estimated CRCL calculation 49 ml/min; Estimated Glomerular Filt Rate 55; Glucose 161 mg/dL (65-105); Potassium 4.3 mmol/L (3.4-5.0); Sodium 140 mmol/L (137-145)
[2020-01-30] MEDS: TRAMADOL HCL 50 MG TABLET PO ×2 (07:59→12:24)
[2020-01-30] MEDS: ISOSORBIDE MONONITRATE 30 MG TAB.ER.24H PO ×2 (08:01→17:47)
[2020-01-30] MEDS: OMEGA 3 POLYUNSAT FATTY ACIDS 1 GM CAP PO ×2 (08:01→17:21)
[2020-01-30] MEDS: CHOLECALCIFEROL 1,000 UNIT TABLET 5000 UNITS PO (08:01)
[2020-01-30] MEDS: DOCUSATE SODIUM 100 MG CAPSULE PO ×2 (08:01→17:20)
[2020-01-30] MEDS: RANOLAZINE 500 MG TAB.ER.12H 1000 MG PO (08:01)
[2020-01-30 08:02] VITALS: PULSE 68
[2020-01-30] MEDS: METOPROLOL SUCCINATE EXT REL 25 MG TABCR PO (08:02)
[2020-01-30] MEDS: PRASUGREL HCL 10 MG TABLET PO (08:02)
[2020-01-30] MEDS: CYANOCOBALAMIN 1,000 MCG TABLET 1000 MCG PO (08:02)
[2020-01-30] MEDS: ASPIRIN 325 MG ENTERIC TABLET 650 MG PO (08:02)
[2020-01-30] MEDS: ASCORBIC ACID 250 MG TABLET PO (08:02)
[2020-01-30 09:03] VITALS: O2SAT 95
[2020-01-30 09:32] LABS: Glucose Point of Care 192 (65-105)
[2020-01-30] MEDS: polyethylene glycoL 3350 17 GM POWD.PACK PO (11:35)
[2020-01-30 12:00] LABS: Glucose Point of Care 176 (65-105)
--- NOTE | 2020-01-30 12:16 | PM.IMPN ---
Progress Note: A&P Assessment and Plan (1) Intertrochanteric fracture of right femur: Onset Date: 01/26/20 Qualifiers: Encounter type: initial encounter Fracture alignment: displaced Fracture type: closed Qualified Code(s): S72.141A - Displaced intertrochanteric fracture of right femur, initial encounter for closed fracture Code(s): S72.141A - Displaced intertrochanteric fracture of right femur, initial encounter for closed fracture Status: Acute Assessment and Plan: Dr. Rivera consulted and appreciate input. Now S/P repair with intramedullary hip screw on 01/26/2020. POD #4. Postoperative management per Orthopedics. Continue PT/OT. Patient now wishes to go to SNF. Has been accepted at [facility]. Will be discharged to [facility] today. (2) CAD (coronary artery disease): Qualifiers: Coronary Disease-Associated Artery/Lesion type: due to calcified coronary lesion Qualified Code(s): I25.10 - Atherosclerotic heart disease of [place] coronary artery without angina pectoris; I25.84 - Coronary atherosclerosis due to calcified coronary lesion Code(s): I25.10 - Atherosclerotic heart disease of [place] coronary artery without angina pectoris Status: Acute Assessment and Plan: Known significant disease with patient having 14 stents previously placed. Cardiology consulted prior to surgery and appreciate input. Per records from regular market research interviewer, Dr. Nation, EF 72% in 2018. Presently stable. Will continue home ASA, atorvastatin, metoprolol, Ranexa, Imdur and Effient. (3) HTN (hypertension): Qualifiers: Hypertension type: essential hypertension Qualified Code(s): I10 - Essential (primary) hypertension Code(s): I10 - Essential (primary) hypertension Status: Acute Assessment and Plan: Blood pressure reviewed on 01/30/2020 and stable. Will continue metoprolol and Imdur. (4) Diabetes: Qualifiers: Chronic kidney disease stage: stage 3 (moderate) Diabetes mellitus complication detail: with chronic kidney disease Diabetes mellitus complication status: with kidney complications Diabetes mellitus retirement insulin use: without retirement use Diabetes mellitus type: type 2 Qualified Code(s): E11.22 - Type 2 diabetes mellitus with diabetic chronic kidney disease; N18.3 - Chronic kidney disease, stage 3 (moderate) Code(s): E11.9 - Type 2 diabetes mellitus without complications Status: Acute Assessment and Plan: Hemoglobin A1c 6.7. Home Jardiance and metformin remain on hold. Glucose reviewed on 01/30/2020 and remains controlled. Resume Jardiance and metformin but will need to monitor glucose at SNF. (5) Fall: Qualifiers: Encounter type: initial encounter Qualified Code(s): W19.XXXA - Unspecified fall, initial encounter Code(s): W19.XXXA - Unspecified fall, initial encounter Status: Acute Assessment and Plan: Continue PT/OT. (6) Anemia: Qualifiers: Anemia type: unspecified type Qualified Code(s): D64.9 - Anemia, unspecified Code(s): D64.9 - Anemia, unspecified Status: Acute Assessment and Plan: Known chronic anemia. Does have acute component related to acute blood loss. Hemoglobin 8.5 today and stable. Follow at SNF. (7) HLD (hyperlipidemia): Qualifiers: Hyperlipidemia type: unspecified Qualified Code(s): E78.5 - Hyperlipidemia, unspecified Code(s): E78.5 - Hyperlipidemia, unspecified Status: Acute Assessment and Plan: Continue home atorvastatin and fish oil. (8) DVT prophylaxis: Code(s): Z29.9 - Encounter for prophylactic measures, unspecified Status: Acute Assessment and Plan: SCDs. Also on home Effient. Time Spent With Patient Time with patient: 15 - 25 minutes Subjective Date/time seen: 01/30/20 12:16 Interval history: Date of Service: 01/30/2020. Admit
--- NOTE | 2020-01-30 15:33 | PM.PNCARD ---
Progress Note: A&P Time Spent With Patient Time: Patient is being prepared for discharge. Staff asked me to provide opinion as to anticoagulation/anti-platelet regimen upon which the patient should be discharged. She has a history of coronary artery disease with remote history of stenting/PCI but nothing within the last 2-3 years. She was admitted to the hospital on dual anti-platelet therapy with low-dose aspirin along with prasugrel. She is currently receiving high-dose aspirin. She does not have a an indication to be anticoagulated. At this point I would agree with continuing the aspirin. If aspirin is going to be prescribed at high dose I would avoid prescribing prasugrel/dual anti-platelet therapy since she has not had a recent coronary intervention. There is no current indication at least a cardiac indication for systemic anticoagulation Emir Romero MD [facility] Subjective Date/time seen: Date of service: 01/30/20 15:33 Objective Data Vital Signs Vital Signs: Vital Signs - 24 hr 01/29/20 22:00 01/30/20 06:00 01/30/20 08:02 Temperature 36.4 C 36.5 C Pulse Rate 59 L 60 68 Respiratory Rate 16 16 Blood Pressure 128/41 L 109/94 H Pulse Oximetry 100 99 01/30/20 09:03 Temperature Pulse Rate Respiratory Rate Blood Pressure Pulse Oximetry 95 Intake/Output Intake/Output: Intake & Output 01/27/20 01/28/20 01/29/20 01/30/20 23:59 23:59 23:59 23:59 Intake Total 2200 1970 1410 840 Output Total 2025 902 1500 Balance 175 1068 -90 840 Meds/Results Medications: Active Medications Generic Name Dose Route Start Last Admin Trade Name Freq PRN Reason Stop Dose Admin Acetaminophen 500 mg 01/29/20 09:48 Tylenol Tablet PO Q4H PRN Mild Pain (1-2) Or Fever Hydrocodone Bitart/Acetaminophen 1 tab 01/26/20 14:25 01/28/20 05:03 Jones 5-325 Mg PO 1 tab Q3H PRN Administration Pain Rated 5-6 Al Hydrox/Mg Hydrox/Simethicone 30 ml 01/26/20 14:25 Mylanta PO Q6H PRN Indigestion Ascorbic Acid 250 mg 01/26/20 09:00 01/30/20 08:02 Vitamin C PO 250 mg DAILY SIMRAN Administration Aspirin 650 mg 01/27/20 09:00 01/30/20 08:02 Aspirin Ec PO 650 mg DAILY SIMRAN Administration Atorvastatin Calcium 80 mg 01/26/20 21:00 01/29/20 20:49 Lipitor PO 80 mg HS [facility] Administration Bisacodyl 10 mg 01/26/20 14:25 Dulcolax Suppository RECTAL DAILY PRN Constipation Calcium Carbonate 500 mg 01/26/20 09:00 01/30/20 08:02 Os-Umesh 500 +D Tablet PO 02/26/20 09:01 500 mg DAILY SIMRAN Administration Cyanocobalamin 1,000 mcg 01/26/20 09:00 01/30/20 08:02 Vitamin B-12 Tab PO 1,000 mcg DAILY SIMRAN Administration Dextrose 12.5 gm 01/26/20 08:52 Dextrose 50% Syringe IV PUSH PRN PRN Hypoglycemia Protocol Diazepam 5 mg 01/26/20 14:25 Valium Po PO Q8H PRN Muscle Spasm Docusate Sodium 100 mg 01/26/20 17:00 01/30/20 08:01 Colace Capsule PO 100 mg BID SIMRAN Administration Fish Oil 1 gm 01/26/20 17:00 01/30/20 08:01 Lovaza PO 1 gm BID [facility] Administration Gabapentin 100 mg 01/26/20 15:08 01/29/20 08:56 Neurontin PO 100 mg DAILY PRN Administration Foot pain Glucagon 1 mg 01/26/20 08:52 Glucagon For Inj IM PRN PRN Hypoglycemia Protocol Glucose 15 gm 01/26/20 08:52 Glutose 15 PO PRN PRN Hypoglycemia Protocol Dextrose 1,000 mls @ 100 mls/hr 01/26/20 08:52 Dextrose 5% 1,000 Ml IVPB PRN PRN Hypoglycemia Protocol Ibuprofen 800 mg in 200 mls @ 400 mls/hr 01/26/20 14:25 Caldolor 800 Mg/200 Ml IVPB Q6H PRN Pain Rated 4-6 Insulin Aspart 2 - 5 units 01/26/20 08:00 01/30/20 11:38 Novolog SUB-Q Not Given TIDWM [facility] Protocol Isosorbide Mononitrate 30 mg 01/26/20 09:00 01/30/20 08:01 Imdur PO 30 mg BID [facility] Administration Magnesium Hydroxide 30 ml 01/26/20 14:25
[2020-01-30 17:24] LABS: Glucose Point of Care 158 (65-105)
[2020-01-30 17:49] VITALS: BP 135/54; PULSE 60; RESP 18; TEMP 37.2; O2SAT 100
--- NOTE | 2020-01-30 18:46 | PM.DS ---
DS: Diagnosis Admitting Diagnosis Admitting Diagnosis: Displaced intertrochanteric fracture of right femur, initial encounter for closed fracture Discharge Diagnosis (1) Intertrochanteric fracture of right femur: Onset Date: 01/26/20 Qualifiers: Encounter type: initial encounter Fracture alignment: displaced Fracture type: closed Qualified Code(s): S72.141A - Displaced intertrochanteric fracture of right femur, initial encounter for closed fracture Code(s): S72.141A - Displaced intertrochanteric fracture of right femur, initial encounter for closed fracture Status: Acute (2) CAD (coronary artery disease): Qualifiers: Coronary Disease-Associated Artery/Lesion type: due to calcified coronary lesion Qualified Code(s): I25.10 - Atherosclerotic heart disease of [place] coronary artery without angina pectoris; I25.84 - Coronary atherosclerosis due to calcified coronary lesion Code(s): I25.10 - Atherosclerotic heart disease of [place] coronary artery without angina pectoris Status: Acute (3) HTN (hypertension): Qualifiers: Hypertension type: essential hypertension Qualified Code(s): I10 - Essential (primary) hypertension Code(s): I10 - Essential (primary) hypertension Status: Acute (4) Diabetes: Qualifiers: Chronic kidney disease stage: stage 3 (moderate) Diabetes mellitus complication detail: with chronic kidney disease Diabetes mellitus complication status: with kidney complications Diabetes mellitus intermediate manager insulin use: without intermediate manager use Diabetes mellitus type: type 2 Qualified Code(s): E11.22 - Type 2 diabetes mellitus with diabetic chronic kidney disease; N18.3 - Chronic kidney disease, stage 3 (moderate) Code(s): E11.9 - Type 2 diabetes mellitus without complications Status: Acute (5) Fall: Qualifiers: Encounter type: initial encounter Qualified Code(s): W19.XXXA - Unspecified fall, initial encounter Code(s): W19.XXXA - Unspecified fall, initial encounter Status: Acute (6) Anemia: Qualifiers: Anemia type: unspecified type Qualified Code(s): D64.9 - Anemia, unspecified Code(s): D64.9 - Anemia, unspecified Status: Acute (7) HLD (hyperlipidemia): Qualifiers: Hyperlipidemia type: unspecified Qualified Code(s): E78.5 - Hyperlipidemia, unspecified Code(s): E78.5 - Hyperlipidemia, unspecified Status: Acute DS: Summary Hospital Course Reason for hospitalization: Right hip pain after fall. Hospital Course: Date of Service of Discharge: January 30, 2020. History of Present Illness: Patient is a pleasant 74-year-old with extensive coronary artery disease, pacemaker, diabetes mellitus, hypertension, hyperlipidemia and chronic kidney disease who presented to the emergency room by EMS with complaint of right hip pain and inability to move after fall. Patient reports she was in her usual state of health prior to incident. She does live with her niece who has 2 large black Labrador retriever is a. Patient reports the 120 lb Labrador show after against the wall when apparently she was not getting food fast enough for the the dog. Patient reports she fell on the floor and hit her head. No loss of consciousness. She instantly had pain in the right hip was unable to move. She did not feel lightheaded have chest pain or shortness of breath prior to incident. She is followed by Dr. Nation at [facility] for her coronary artery disease. She previously has been told she could not have an elective colonoscopy due to her heart disease. In the emergency room, she was noted to have mildly displaced, minimally angulated comminuted intertrochanteric fracture of the proximal right fever. Orthopedics was consulted from the emergency room. With her findings, she was admitted for further evaluation and treatment. Course in Hospital: Patient was admitted to the medical floor
== END 2020-01-30 19:50 | DRG 481 ==
LOC: ANHED 01-26 00:24 → ANH3MEDSUR 01-26 00:35
PROVIDERS: Orthopaedic Surgery; Admitting Provider Internal Medicine; Emergency Provider Emergency Medicine; PCP Family Medicine; Visit Provider Hospitalist
PROC: 0QS636Z Reposition Right Upper Femur with Intramedullary Internal Fixation Device, Percutaneous Approach (ICD-10-PCS; principal; 2020-01-26 13:00)
DX: S72.141A Displaced intertrochanteric fracture of right femur, initial encounter for closed fracture (principal); I13.0 Hypertensive heart and chronic kidney disease with heart failure and stage 1 through stage 4 chronic kidney disease, or unspecified chronic kidney disease; D62 Acute posthemorrhagic anemia; I25.10 Atherosclerotic heart disease of native coronary artery without angina pectoris; E11.22 Type 2 diabetes mellitus with diabetic chronic kidney disease; N18.3 Chronic kidney disease, stage 3 (moderate); I50.9 Heart failure, unspecified; W19.XXXA Unspecified fall, initial encounter; D64.9 Anemia, unspecified; M19.90 Unspecified osteoarthritis, unspecified site; J45.909 Unspecified asthma, uncomplicated; E11.42 Type 2 diabetes mellitus with diabetic polyneuropathy; E78.5 Hyperlipidemia, unspecified; Z95.0 Presence of cardiac pacemaker; Z95.5 Presence of coronary angioplasty implant and graft; Z98.42 Cataract extraction status, left eye; Z98.41 Cataract extraction status, right eye; Z66 Do not resuscitate
CPT/HCPCS: 36415; 70450; 73502; 73521; 73552; 80048; 82948; 83036; 83735; 85014; 85018; 85025; 85027; 85055; 85610; 85730; 93005; 93306; 96361; 96374; 96375; 97110; 97116; 97161; 97165; 97530; 97535; 99285; A9270; C1713; J0131; J0690; J1100; J1741; J2270; J2405; J2704; J3010; J7030; J7120

== ENCOUNTER 2020-02-10 06:57 | Outpatient (CLI) | payer MEDICARE, MEDICAID, SELFPAY ==
--- NOTE | ~2020-02-10 | CT_ITS ---
EXAMINATION: CT pelvis wo con DATE: 02/10/2020 07:26 INDICATION: Displaced intertrochanteric right femoral fracture 3 weeks ago. Swelling. TECHNIQUE: Computed tomography (CT) of the pelvis was performed without intravenous contrast. Automat ed exposure control and iterative reconstruction technique were employed. Exam dose: 668.64 mGy-cm t otal exam DLP. COMPARISON: 01/25/2020 right hip and right femur FINDINGS: Normal appendix. No bowel obstruction. No pelvic mass lesion or adenopathy or ascites. The uterus and urinary bladder are unremarkable. Moderate bilateral hip osteoarthritis. There is a compression screw and nail providing internal fixation and near-anatomic position and alig nment at a comminuted intertrochanteric recent fracture of the proximal right femur. No pelvic fracture is evident. The pubic symphysis and sacroiliac joints are intact. IMPRESSION: Recent ORIF right comminuted intertrochanteric hip fracture Bilateral hip osteoarthritis Reviewed, dictated and finalized at [facility]. Reviewed, dictated and finalized at [facility].
== END 2020-02-10 06:58 | disposition home or self-care (01) ==
PROVIDERS: PCP Family Medicine; Visit Provider Family Medicine
DX: S72.141A Displaced intertrochanteric fracture of right femur, initial encounter for closed fracture (principal); M16.0 Bilateral primary osteoarthritis of hip
CPT/HCPCS: 72192

== ENCOUNTER 2020-02-14 07:44 | Outpatient (CLI) | payer MEDICARE, MEDICAID, SELFPAY ==
--- NOTE | 2020-02-14 | EST_ITS ---
Patient Info Name: Venus Hung Age: 74 years : 1945 Gender: Female Ht: 66 in Wt: 169 lbs BSA: 1.91 m2 Exam Date: 02/14/2020 9:17 AM Exam Location: [facility] Stress Patient Status: Outpatient Admit Date: 02/14/2020 Staff Ordering Physician: PHYSICIAN NOT ON STAFF, NONSTAFF Attending Provider: PHYSICIAN NOT ON STAFF, NONSTAFF Exercise Technologist: Iliana Wood RDCS Nurse: Pattie Alanis ANP, ACNP-BC Exam Type: CA stress jeffery w NM Study Info Indications R06.02 - Shortness of breath A treadmill exercise stress test was performed. Summary 1. Please correlate with nuclear medicine images, reported separately. 2. No abnormal ST-T wave changes with lexiscan. Protocol: Lexiscan Stress ECG Details Stage: REST Duration (min): 8 min : 31 sec HR (bpm): 64 SBP (mmHg): 127 DBP (mmHg): 59 Stage: REST Duration (min): 18 min : 7 sec HR (bpm): 60 SBP (mmHg): 127 DBP (mmHg): 59 Stage: STAGE 1 Duration (min): 1 min : 0 sec HR (bpm): 67 SBP (mmHg): 135 DBP (mmHg): 53 Stage: RECOVERY Duration (min): 1 min : 0 sec HR (bpm): 91 SBP (mmHg): 96 DBP (mmHg): 41 Stage: RECOVERY Duration (min): 2 min : 0 sec HR (bpm): 77 SBP (mmHg): 96 DBP (mmHg): 41 Stage: RECOVERY Duration (min): 3 min : 0 sec HR (bpm): 70 SBP (mmHg): 120 DBP (mmHg): 35 Stage: RECOVERY Duration (min): 4 min : 0 sec HR (bpm): 93 SBP (mmHg): 120 DBP (mmHg): 35 Stage: RECOVERY Duration (min): 5 min : 0 sec HR (bpm): 87 SBP (mmHg): 167 DBP (mmHg): 77 Stage: RECOVERY Duration (min): 6 min : 0 sec HR (bpm): 81 SBP (mmHg): 160 DBP (mmHg): 74 Stage: RECOVERY Duration (min): 7 min : 0 sec HR (bpm): 73 SBP (mmHg): 160 DBP (mmHg): 74 Stage: RECOVERY Duration (min): 8 min : 0 sec HR (bpm): 71 SBP (mmHg): 149 DBP (mmHg): 61 Stage: RECOVERY Duration (min): 9 min : 0 sec HR (bpm): 70 SBP (mmHg): 137 DBP (mmHg): 56 Stage: RECOVERY Duration (min): 9 min : 12 sec HR (bpm): 69 SBP (mmHg): 137 DBP (mmHg): 56 Rest HR: 60 bpm Peak HR: 94 bpm Rest Sys BP: 127 mmHg Peak Sys BP: 167 mmHg Max Pred HR: 148 bpm % Max Pred HR: 64 % Target HR: 126 bpm Max RPP: 15,698 bpm*mmHg BP Response: Normal blood pressure response Termination Reason: Completed protocol Cardiac Symptoms: None Total Time: 1 min : 0 sec Rest Delgado BP: 59 mmHg Peak Delgado BP: 77 mmHg Total Dose: 0.4 mg Resting ECG Atrial pacing. Right bundle branch block. Inferior Q waves. Stress ECG No abnormal ST/T-wave changes with Lexiscan. Arrhythmias None. Report Signatures
--- NOTE | ~2020-02-14 | NM_ITS ---
EXAMINATION: NM jeffery stress w perfusion DATE: 02/14/2020 10:51 INDICATION: Shoulder pain. Shortness of breath. TECHNIQUE: Rest images were obtained following intravenous administration of 9.8 mCi Tc99m tetrofosmi n (Myoview). The patient was infused intravenously with Lexiscan (Regadenoson). Then, 29.5 mCi Tc99m tetrofosmin (Myoview) was administered intravenously, and stress images were obtained. Data was recon structed into short axis and horizontal and vertical long axis SPECT images. Gated SPECT images were also obtained. COMPARISON: None. FINDINGS: There is no definite reversible or fixed perfusion abnormality to suggest ischemia or infar ction. There is normal left ventricular chamber size, wall motion and ejection fraction. Left ventr icular ejection fraction measures >70%. IMPRESSION: 1. Normal myocardial perfusion at rest and during stress. 2. Left ventricular ejection fraction measuring >70%. Reviewed, dictated and finalized at [facility].
== END 2020-02-14 07:45 | disposition home or self-care (01) ==
PROVIDERS: PCP Family Medicine
DX: M25.519 Pain in unspecified shoulder (principal); R06.02 Shortness of breath
CPT/HCPCS: 78452; 93017; A9502; J0280; J2785

== ENCOUNTER 2020-03-20 09:49 | Outpatient (CLI) | payer MEDICARE, MEDICAID, SELFPAY ==
--- NOTE | ~2020-03-20 | US_ITS ---
US venous doppler UE LT DATE: 03/20/2020 10:38 INDICATION: Left hand numbness since right hip surgery in December TECHNIQUE: Real-time imaging, color flow imaging and Doppler analysis of the veins of the left upper extremity COMPARISON: None FINDINGS: Normal flow is demonstrated in the left internal jugular, subclavian, axillary, brachial, b asilic, cephalic, radial and ulnar veins. IMPRESSION: Normal examination; no evidence of deep venous thrombosis of left upper extremity Reviewed, dictated and finalized at [facility]. Reviewed, dictated and finalized at [facility]. IMPRESSION: Normal examination; no evidence of deep venous thrombosis of left u pper extremity
== END 2020-03-20 09:50 | disposition home or self-care (01) ==
LOC: ANHIMG 09:51
PROVIDERS: PCP Family Medicine; Visit Provider Family Medicine
DX: G62.9 Polyneuropathy, unspecified (principal)
CPT/HCPCS: 93971

== ENCOUNTER 2020-04-06 13:59 | Emergency (ER) | payer MEDICARE, MEDICAID, SELFPAY ==
--- NOTE | ~2020-04-06 | XR_ITS ---
XR hand LT min 3V DATE: 04/06/2020 14:24 INDICATION: Patient fell on deck. Hand injury. TECHNIQUE: 3 views COMPARISON: None FINDINGS: There are roughly 50% medially displaced linear oblique fractures of the second through fou rth metacarpal shafts. Mild osteoarthritis at the first carpometacarpal joint. IMPRESSION: Second through fourth proximal metacarpal shaft medially displaced fractures Reviewed, dictated and finalized at [facility].
[2020-04-06 13:57] VITALS: PULSE 81; RESP 18; TEMP 36.8; O2SAT 100
--- NOTE | 2020-04-06 14:06 | ED.UPPEXIN ---
HPI - Extremity Injury (Upper) General Chief Complaint: Extremity Injury, Upper Stated Complaint: fall - hand/wrist injury History of Present Illness HPI narrative: 74 yo female present with a c/o hand pain. She fell from standing onto outstretched left hand last night. She had mild pain at the time. Today she has slightly increased pain, which is worse with moving. She also noted moderate bruising in left ahnd. She also reports bruising to the left chest. she has no pain at this location. Related Data Home Medications Medication Instructions Recorded Confirmed Calcium 600 with Vitamin D3 1 tablet PO DAILY 01/26/20 01/26/20 Jardiance 10 mg PO QAM 01/26/20 01/26/20 ascorbic acid (vitamin C) [Vitamin 250 mg PO DAILY 01/26/20 01/26/20 C] atorvastatin 80 mg PO HS 01/26/20 01/26/20 cholecalciferol (vitamin D3) 125 mcg PO DAILY 01/26/20 01/26/20 [Vitamin D3] cyanocobalamin (vitamin B-12) 1,000 mcg PO DAILY 01/26/20 01/26/20 [Vitamin B-12] gabapentin 100 mg PO DAILY PRN 01/26/20 01/26/20 isosorbide mononitrate 30 mg PO BID 01/26/20 01/26/20 metformin 500 mg PO BID 01/26/20 01/26/20 metoprolol succinate 25 mg PO DAILY 01/26/20 01/26/20 nitroglycerin 1 spray SUBLINGUAL Q5M PRN 01/26/20 01/26/20 omega 8-gbv-hik-fish oil [Fish Oil] 1 cap PO BID 01/26/20 01/26/20 prasugrel 10 mg PO DAILY 01/26/20 01/26/20 ranolazine 1,000 mg PO Q12H 01/26/20 01/26/20 Allergies Allergy/AdvReac Type Severity Reaction Status Date / Time No Known Allergies Allergy Mild Verified 04/06/20 14:03 Review of Systems Review of Systems: All systems reviewed & are unremarkable except as noted in HPI and below Constitutional: Constitutional: Denies fever(s) PMFSH Past Medical History Medical History Anxiety Arthritis Asthma Back pain CAD (coronary artery disease) Cataracts, bilateral CHF (congestive heart failure) Diabetes History of angina HLD (hyperlipidemia) HTN (hypertension) Intertrochanteric fracture of right femur (01/26/20) Peripheral neuropathy Pneumonia Surgical History Surgical History History of coronary artery stent placement Has 14 stents History of permanent cardiac pacemaker placement Hx of cardiac catheterization Hx of cataract surgery bilateral eyes Family History Family History Mother Cervical cancer Sibling Diabetes mellitus Sibling Diabetes mellitus Social History Social History Social History: Patient is . She reports her niece, Lay Murdock who is an RN, lives with her. 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 No tobacco use. No alcohol use. She is a DNR. She notes she does not have a designated power of transactional attorney. She has no children. Smoking status: Never smoker Alcohol intake: never Substance use: never Additional living arrangements comments: Niece lives with her. Additional occupation/education comments: Retired from [employer] office work. Gender identity (if verbalized by the patient): Female Spiritual care concerns: No Agree to blood products: Yes Exam Const: General: no acute distress and alert Orientation/consciousness: patient oriented x3 HENMT: Head: normal to inspection Resp: Effort & Inspection: normal respiratory effort Auscultation: clear to auscultation bilaterally Cardio: Rate: regular rate Rhythm: regular rhythm Other: 2+ left radial pulse Skin: Other: Bruising to left hand and left chest wall Neuro: General: patient oriented x3, moves all extremities and CN's II-XI intact bilaterally Speech: normal speech Other: diminished sesation in left fingers 3-5(chronic) Extrem: Other: tenderness to mid left hand Course Vital Signs Vital signs: Vital Signs Temperature 36.8 C 04/06
[2020-04-06 15:19] VITALS: BP 110/59; PULSE 68; RESP 14; O2SAT 100
[2020-04-06 16:59] VITALS: BP 137/55; PULSE 69; RESP 14; O2SAT 100
== END 2020-04-06 17:30 | disposition home or self-care (01) ==
PROVIDERS: Emergency Provider Emergency Medicine; PCP Family Medicine
DX: S62.321A Displaced fracture of shaft of second metacarpal bone, left hand, initial encounter for closed fracture (principal); S62.323A Displaced fracture of shaft of third metacarpal bone, left hand, initial encounter for closed fracture; S62.325A Displaced fracture of shaft of fourth metacarpal bone, left hand, initial encounter for closed fracture; M19.90 Unspecified osteoarthritis, unspecified site; J45.909 Unspecified asthma, uncomplicated; I25.10 Atherosclerotic heart disease of native coronary artery without angina pectoris; I50.9 Heart failure, unspecified; E11.42 Type 2 diabetes mellitus with diabetic polyneuropathy; E78.5 Hyperlipidemia, unspecified; I10 Essential (primary) hypertension; Z79.84 Long term (current) use of oral hypoglycemic drugs; Z79.4 Long term (current) use of insulin; W19.XXXA Unspecified fall, initial encounter; Z95.5 Presence of coronary angioplasty implant and graft; Z95.0 Presence of cardiac pacemaker; Z98.42 Cataract extraction status, left eye; Z98.41 Cataract extraction status, right eye; Z66 Do not resuscitate
CPT/HCPCS: 29125; 73130; 99284

== ENCOUNTER 2020-08-10 08:57 | Outpatient (CLI) | payer MEDICARE, MEDICAID, SELFPAY ==
--- NOTE | ~2020-08-10 | DEXA_ITS ---
Bone Density Report Name: Venus Hung Age: 74 Sex: Female Ethnicity: White Date of : 1945 Indication: postmenopausal; prior fracture; Referring Provider: ZACHARY MEYER Study: Bone densitometry was performed. Exam Date: August 10, 2020 Accession number: [id number] Bone Density: Region BMD T-score Z-score Classification AP Spine (L1, L2) 1.113 1.2 3.3 Normal Femoral Neck (Left) 0.841 -0.1 1.9 Normal Total Hip (Left) 0.857 -0.7 0.9 Normal World Health Organization criteria for BMD impression classify patients as: Normal (T-score at or above -1.0), Osteopenia (T-score between -1.0 and -2.5), or Osteoporosis (T-score at or below -2.5). 10-year Fracture Risk: FRAX not reported because: All T-scores for Spine Total, Hip Total, Femoral Neck at or above -1.0 Prior hip or vertebral fracture Previous Exams: Region Exam Age BMD T-score BMD Change BMD Change Date g/cm2 vs Baseline vs Previous AP Spine(L1, L2) 08/10/2020 74 1.113 1.2 -0.038(-3.3%)# 0.016(1.5%) 05/15/2015 69 1.097 1.1 -0.054(-4.7%)# -0.054(-4.7%)# 03/21/2013 67 1.151 1.6 Total Hip(Left) 08/10/2020 74 0.857 -0.7 -0.127(-12.9%) -0.101(-10.5%) 05/15/2015 69 0.958 0.1 -0.026(-2.6%)# -0.026(-2.6%)# 03/21/2013 67 0.984 0.3 *Denotes significance at 95% confidence level, LSC for AP Spine = 0.022 g/cm2, LSC for Total Hip = 0.027 g/cm2 Clinical Information Provided by Patient: Have had a previous hip or vertebral fracture Has had a low trauma fracture Has used the following medications: Vitamin D, Calcium Patient maximum height was 66 Menopause Age: 57 Drinks caffeinated beverages Onset of menses at age 14 Number of children 0 Impression: The patient has normal bone mass. The patient has risk factors, including: previous fracture. The BMD for the Total Hip(Left) decreased, changing by -10.5% since the last DXA exam. Discussion: INCREASED RISK OF FRACTURE DUE TO HISTORY OF FRACTURE. The patient's previous fracture puts the patient at high risk of a future fracture. In untreated patients, the risk of osteoporotic fracture increases approximately two-fold for each 1.0 SD decrease in T-score. Low bone density is not the only risk factor for fracture; also consider factors such as patient's age, frailty or poor health, risk of falling, risk of injury, previous osteoporotic fracture, family history of osteoporosis, cigarette smoking, low body weight, etc. Not everyone with a low trauma fracture has osteoporosis; osteomalacia and ot
--- NOTE | ~2020-08-10 | MM_ITS ---
EXAMINATION: MM screening emilie BI w lizette HISTORY: Screening TECHNIQUE: Craniocaudal and mediolateral oblique 3-D tomosynthesis images were obtained and synthetic 2-D images were generated. CAD analysis was submitted and interpreted. COMPARISON: Comparison to multiple prior studies sequentially, with oldest reviewed study dated 05/15. BREAST PARENCHYMAL COMPOSITION: The breasts are heterogeneously dense, which may obscure small masses . FINDINGS: There is a pacemaker battery pack overlying the left upper breast. There is no evidence of suspicious mass, calcification, or architectural distortion to suggest malignancy in either breast. T here has been no suspicious interval change. IMPRESSION: 1. No mammographic evidence of malignancy. 2. Recommend routine screening mammography in one year. BI-RADS Category 1: Negative Reviewed, dictated and finalized at location [facility].
== END 2020-08-10 08:58 | disposition home or self-care (01) ==
LOC: ANHIMG 09:00
PROVIDERS: PCP Family Medicine; Visit Provider Obstetrics & Gynecology
DX: Z12.31 Encounter for screening mammogram for malignant neoplasm of breast (principal); Z78.0 Asymptomatic menopausal state
CPT/HCPCS: 77063; 77067; 77080

== ENCOUNTER 2020-09-13 08:35 | Outpatient (CLI) | payer MEDICARE, MEDICAID, SELFPAY ==
[2020-09-13 09:23] LABS: Basophils Percent Auto 0.6 % (0.2-1.2); Eosinophils Absolute Auto 0.1 K/mm3 (0-0.3); Eosinophils Percent Auto 0.8 % (0-4.4); Hematocrit 38.6 % (37.0-47.0); Hemoglobin 12.3 g/dL (12.0-15.0); Immature Granulocyte Absolute 0.01 K/mm3 (0.00-0.031); Immature Granulocyte Percent A 0.1 % (0-0.5); Lymphocytes Absolute Auto 2.86 K/mm3 (0.9-3.2); Lymphocytes Percent Auto 40.1 % (18.3-44.2); Mean Corpuscular HGB Conc 31.9 g/dl (32-36); Mean Corpuscular Hemoglobin 26.7 pg (26-34); Mean Corpuscular Volume 83.7 fl (80-100); Mean Platelet Volume 10.8 fl (7.4-10.4); Monocytes Absolute Auto 0.5 K/mm3 (0.1-0.6); Neutrophils Absolute Auto 3.7 K/mm3 (1.3-6.7); Neutrophils Percent Auto 51.4 % (45.5-73.1); Platelet Count Result 217 k/mm3 (150-375); Red Blood Count 4.61 M/mm3 (4.2-5.4); White Blood Count 7.1 K/mm3 (4.5-10.0)
[2020-09-13 09:36] LABS: Albumin Level 4.3 g/dL (3.5-5.1); Anion Gap 9 mmol/L (8-16); Blood Urea Nitrogen 20 mg/dL (7-17); Calcium 9.7 mg/dL (8.4-10.2); Carbon Dioxide 30 mmol/L (22-30); Chloride 103 mmol/L (98-107); Cholesterol 119 mg/dL (0-200); Estimated Glomerular Filt Rate 44; Glucose 144 mg/dL (65-105); HDL Direct 44 mg/dL; Magnesium 2.1 mg/dL (1.6-2.3); Potassium 4.6 mmol/L (3.4-5.0); Sodium 142 mmol/L (137-145); Triglycerides 173 mg/dL (<150)
[2020-09-13 09:40] LABS: Hemoglobin A1C 6.5 % (<5.7)
[2020-09-13 09:47] LABS: Total Protein Urine Random 23 mg/dL
[2020-09-13 09:47] LABS: LDL Cholesterol Direct 43 mg/dL
[2020-09-13 09:52] LABS: MALB Creatinine Ratio 107.8 mg/g (0-30); Microalbumin Urine Random 43.1 mg/L (0-16.7)
[2020-09-13 10:21] LABS: Vitamin D 25 Hydroxy 91.2 ng/mL
[2020-09-13 10:52] LABS: Folic Acid 10.3 ng/mL (2.76->20)
== END 2020-09-13 08:36 | disposition home or self-care (01) ==
LOC: ANHLAB 08:42
PROVIDERS: PCP Family Medicine; Visit Provider Internal Medicine Nephrology
DX: E78.5 Hyperlipidemia, unspecified (principal); D63.1 Anemia in chronic kidney disease; D50.9 Iron deficiency anemia, unspecified; N25.0 Renal osteodystrophy; E55.9 Vitamin D deficiency, unspecified; I12.9 Hypertensive chronic kidney disease with stage 1 through stage 4 chronic kidney disease, or unspecified chronic kidney disease; N18.30 Chronic kidney disease, stage 3 unspecified; E11.29 Type 2 diabetes mellitus with other diabetic kidney complication; I50.9 Heart failure, unspecified; I25.10 Atherosclerotic heart disease of native coronary artery without angina pectoris; J44.9 Chronic obstructive pulmonary disease, unspecified; R55 Syncope and collapse; L03.90 Cellulitis, unspecified
CPT/HCPCS: 36415; 80061; 80069; 82043; 82306; 82570; 82607; 82746; 83036; 83735; 83970; 84156; 85025

== ENCOUNTER 2021-03-20 09:06 | Outpatient (CLI) | payer MEDICARE, MEDICAID, SELFPAY ==
[2021-03-20 09:46] LABS: Basophils Percent Auto 0.5 % (0.2-1.2); Eosinophils Absolute Auto 0.1 K/mm3 (0-0.3); Eosinophils Percent Auto 0.8 % (0-4.4); Hematocrit 38.3 % (37.0-47.0); Hemoglobin 11.9 g/dL (12.0-15.0); Immature Granulocyte Absolute 0.03 K/mm3 (0.00-0.031); Immature Granulocyte Percent A 0.4 % (0-0.5); Lymphocytes Absolute Auto 3.08 K/mm3 (0.9-3.2); Lymphocytes Percent Auto 39.2 % (18.3-44.2); Mean Corpuscular HGB Conc 31.1 g/dl (32-36); Mean Corpuscular Hemoglobin 26.5 pg (26-34); Mean Corpuscular Volume 85.3 fl (80-100); Mean Platelet Volume 10.3 fl (7.4-10.4); Monocytes Absolute Auto 0.6 K/mm3 (0.1-0.6); Monocytes Percent Auto 7.1 % (2.6-8.5); Neutrophils Absolute Auto 4.1 K/mm3 (1.3-6.7); Platelet Count Result 214 k/mm3 (150-375); Red Blood Count 4.49 M/mm3 (4.2-5.4); Red Cell Distribution Width 17.5 % (11.5-14.5); White Blood Count 7.9 K/mm3 (4.5-10.0)
[2021-03-20 09:52] LABS: Creatinine Urine 44.5 mg/dL; Total Protein Urine Random 17 mg/dL; Ur Ttl Prot Creatinine Ratio 0.38 mg/mg (0-0.20)
[2021-03-20 09:58] LABS: MALB Creatinine Ratio 150.1 mg/g (0-30); Microalbumin Urine Random 66.8 mg/L (0-16.7)
[2021-03-20 09:59] LABS: Albumin Level 4.4 g/dL (3.5-5.1); Anion Gap 5 mmol/L (8-16); Blood Urea Nitrogen 24 mg/dL (7-17); Calcium 9.1 mg/dL (8.4-10.2); Carbon Dioxide 30 mmol/L (22-30); Chloride 106 mmol/L (98-107); Estimated Glomerular Filt Rate 44; Glucose 158 mg/dL (65-105); Magnesium 1.9 mg/dL (1.6-2.3); Phosphorus 4.4 mg/dL (2.5-4.5); Sodium 141 mmol/L (137-145)
[2021-03-20 10:08] LABS: Parathyroid Intact 37.4 pg/mL (7.5-53.5)
[2021-03-20 10:42] LABS: Vitamin D 25 Hydroxy 70.5 ng/mL
== END 2021-03-20 09:07 | disposition home or self-care (01) ==
PROVIDERS: PCP Family Medicine; Visit Provider Internal Medicine Nephrology
DX: D63.1 Anemia in chronic kidney disease (principal); N25.0 Renal osteodystrophy; E55.9 Vitamin D deficiency, unspecified
CPT/HCPCS: 36415; 80069; 82043; 82306; 82570; 83735; 83970; 84156; 85025

== ENCOUNTER 2021-12-23 10:05 | Outpatient (CLI) | payer MEDICARE, MEDICAID, SELFPAY ==
[2021-12-23 10:49] LABS: Hematocrit 37.5 % (37.0-47.0); Hemoglobin 11.6 g/dL (12.0-15.0); Mean Corpuscular HGB Conc 30.9 g/dl (32-36); Mean Corpuscular Hemoglobin 26.7 pg (26-34); Mean Corpuscular Volume 86.2 fl (80-100); Mean Platelet Volume 11.1 fl (7.4-10.4); Platelet Count Result 207 k/mm3 (150-375); Red Blood Count 4.35 M/mm3 (4.2-5.4); White Blood Count 6.5 K/mm3 (4.5-10.0)
[2021-12-23 11:25] LABS: Parathyroid Intact 52.9 pg/mL (7.5-53.5)
[2021-12-23 11:43] LABS: Creatinine Urine 45.3 mg/dL; Total Protein Urine Random 41 mg/dL; Ur Ttl Prot Creatinine Ratio 0.91 mg/mg (0-0.20)
[2021-12-23 11:47] LABS: MALB Creatinine Ratio 326.5 mg/g (0-30); Microalbumin Urine Random 147.9 mg/L (0-16.7)
[2021-12-23 12:06] LABS: Vitamin D 25 Hydroxy 51.6 ng/mL
== END 2021-12-23 10:06 | disposition home or self-care (01) ==
LOC: ANHLAB 10:19
PROVIDERS: PCP Family Medicine; Visit Provider Internal Medicine Nephrology
DX: N18.30 Chronic kidney disease, stage 3 unspecified (principal); R80.1 Persistent proteinuria, unspecified; E11.22 Type 2 diabetes mellitus with diabetic chronic kidney disease; I10 Essential (primary) hypertension
CPT/HCPCS: 36415; 82043; 82306; 82570; 82607; 83735; 83970; 84156; 84443; 85027

== ENCOUNTER 2022-02-26 09:35 | Outpatient (CLI) | payer MEDICARE, MEDICAID, SELFPAY ==
[2022-02-26 10:39] LABS: Albumin Level 4.8 g/dL (3.5-5.1); Anion Gap 8 mmol/L (8-16); Blood Urea Nitrogen 25 mg/dL (7-17); Calcium 9.4 mg/dL (8.4-10.2); Carbon Dioxide 28 mmol/L (22-30); Chloride 104 mmol/L (98-107); Estimated Glomerular Filt Rate 40; Glucose 100 mg/dL (65-110); Magnesium 1.9 mg/dL (1.6-2.3); Phosphorus 4.2 mg/dL (2.5-4.5); Potassium 4.6 mmol/L (3.4-5.0); Sodium 140 mmol/L (137-145)
== END 2022-02-26 09:36 | disposition home or self-care (01) ==
LOC: ANHLAB 09:39
PROVIDERS: PCP Family Medicine; Visit Provider Internal Medicine Nephrology
DX: E11.22 Type 2 diabetes mellitus with diabetic chronic kidney disease (principal); I12.9 Hypertensive chronic kidney disease with stage 1 through stage 4 chronic kidney disease, or unspecified chronic kidney disease; N18.30 Chronic kidney disease, stage 3 unspecified; R80.1 Persistent proteinuria, unspecified; I25.84 Coronary atherosclerosis due to calcified coronary lesion
CPT/HCPCS: 36415; 80069; 83036; 83735

== ENCOUNTER 2022-08-25 09:16 | Outpatient (CLI) | payer MEDICARE, MEDICAID, SELFPAY ==
[2022-08-25 10:01] LABS: Hematocrit 40.5 % (37.0-47.0); Hemoglobin 12.9 g/dL (12.0-15.0); Mean Corpuscular HGB Conc 31.9 g/dl (32-36); Mean Corpuscular Hemoglobin 28.4 pg (26-34); Mean Platelet Volume 10.8 fl (7.4-10.4); Platelet Count Result 191 k/mm3 (150-375); Red Blood Count 4.55 M/mm3 (4.2-5.4); Red Cell Distribution Width 16.6 % (11.5-14.5); White Blood Count 7.4 K/mm3 (4.5-10.0)
[2022-08-25 10:21] LABS: Albumin Level 4.3 g/dL (3.5-5.1); Anion Gap 12 mmol/L (8-16); Blood Urea Nitrogen 21 mg/dL (7-17); Calcium 9.4 mg/dL (8.4-10.2); Carbon Dioxide 29 mmol/L (22-30); Chloride 101 mmol/L (98-107); Cholesterol 181 mg/dL (0-200); Estimated Glomerular Filt Rate 44; Glucose 167 mg/dL (65-110); HDL Direct 57 mg/dL; Phosphorus 4.8 mg/dL (2.5-4.5); Potassium 4.3 mmol/L (3.4-5.0); Sodium 142 mmol/L (137-145); Triglycerides 227 mg/dL (<150)
[2022-08-25 10:29] LABS: LDL Cholesterol Direct 67 mg/dL
[2022-08-25 10:32] LABS: Hemoglobin A1C 6.7 % (<5.7)
[2022-08-25 10:38] LABS: Creatinine Urine 39.6 mg/dL
[2022-08-25 10:42] LABS: MALB Creatinine Ratio 38.6 mg/g (0-30); Microalbumin Urine Random 15.3 mg/L (0-16.7)
[2022-08-25 11:01] LABS: Total Protein Urine Random 13 mg/dL
== END 2022-08-25 09:17 | disposition home or self-care (01) ==
PROVIDERS: PCP Family Medicine; Visit Provider Internal Medicine Nephrology
DX: I12.9 Hypertensive chronic kidney disease with stage 1 through stage 4 chronic kidney disease, or unspecified chronic kidney disease (principal); N18.30 Chronic kidney disease, stage 3 unspecified; R80.1 Persistent proteinuria, unspecified; E11.22 Type 2 diabetes mellitus with diabetic chronic kidney disease; I25.84 Coronary atherosclerosis due to calcified coronary lesion
CPT/HCPCS: 36415; 80061; 80069; 81050; 82043; 82306; 83036; 83735; 84156; 85027

== ENCOUNTER 2023-02-24 09:25 | Outpatient (CLI) | payer MEDICARE, MEDICAID, SELFPAY ==
[2023-02-24 10:10] LABS: Basophils Percent Auto 0.6 % (0.2-1.2); Eosinophils Absolute Auto 0.1 K/mm3 (0-0.3); Eosinophils Percent Auto 0.9 % (0-4.4); Hematocrit 38.8 % (37.0-47.0); Immature Granulocyte Absolute 0.01 K/mm3 (0.00-0.031); Immature Granulocyte Percent A 0.2 % (0-0.5); Lymphocytes Absolute Auto 2.72 K/mm3 (0.9-3.2); Lymphocytes Percent Auto 41.8 % (18.3-44.2); Mean Corpuscular HGB Conc 30.9 g/dl (32-36); Mean Corpuscular Hemoglobin 27.5 pg (26-34); Mean Platelet Volume 11.1 fl (7.4-10.4); Monocytes Absolute Auto 0.5 K/mm3 (0.1-0.6); Monocytes Percent Auto 7.1 % (2.6-8.5); Neutrophils Absolute Auto 3.2 K/mm3 (1.3-6.7); Neutrophils Percent Auto 49.4 % (45.5-73.1); Platelet Count Result 189 k/mm3 (150-375); Red Blood Count 4.36 M/mm3 (4.2-5.4); Red Cell Distribution Width 17.2 % (11.5-14.5); White Blood Count 6.5 K/mm3 (4.5-10.0)
[2023-02-24 10:15] LABS: Creatinine Urine 58.6 mg/dL; Total Protein Urine Random 25 mg/dL; Ur Ttl Prot Creatinine Ratio 0.43 mg/mg (0-0.20)
[2023-02-24 10:21] LABS: Alanine Aminotransferase 16 U/L (6-35); Albumin Level 4.4 g/dL (3.5-5.1); Alkaline Phosphatase 76 U/L (38-126); Anion Gap 9 mmol/L (8-16); Aspartate Amino Transferase 22 U/L (14-36); Blood Urea Nitrogen 25 mg/dL (7-17); Calcium 8.9 mg/dL (8.4-10.2); Carbon Dioxide 26 mmol/L (22-30); Chloride 105 mmol/L (98-107); Cholesterol 126 mg/dL (0-200); Estimated Glomerular Filt Rate 48; Glucose 163 mg/dL (65-110); HDL Direct 44 mg/dL; Phosphorus 4.4 mg/dL (2.5-4.5); Potassium 4.5 mmol/L (3.4-5.0); Sodium 140 mmol/L (137-145); Triglycerides 161 mg/dL (<150)
[2023-02-24 10:33] LABS: LDL Cholesterol Direct 43 mg/dL; Parathyroid Intact 51.8 pg/mL (7.5-53.5)
[2023-02-24 11:20] LABS: Vitamin D 25 Hydroxy 56.6 ng/mL
== END 2023-02-24 09:26 | disposition home or self-care (01) ==
PROVIDERS: PCP Family Medicine; Referring Provider Internal Medicine Nephrology; Visit Provider Family Medicine
DX: I12.9 Hypertensive chronic kidney disease with stage 1 through stage 4 chronic kidney disease, or unspecified chronic kidney disease (principal); N18.2 Chronic kidney disease, stage 2 (mild); E11.9 Type 2 diabetes mellitus without complications; E78.5 Hyperlipidemia, unspecified; Z79.899 Other long term (current) drug therapy; E55.9 Vitamin D deficiency, unspecified; E53.8 Deficiency of other specified B group vitamins
CPT/HCPCS: 36415; 80061; 80069; 80076; 82306; 82570; 82607; 83036; 83735; 83970; 84156; 85025

== ENCOUNTER 2023-03-23 21:55 | Emergency (ER) | payer MEDICARE, MEDICAID, SELFPAY ==
[2023-03-23] VITALS (8 sets, daily range): BP systolic 111–127; BP diastolic 62–66; PULSE 93–96; RESP 20–33; TEMP 36.6–37.2; O2SAT 85–100
--- NOTE | ~2023-03-23 | XR_ITS ---
EXAMINATION: XR chest 2V Exam Date/Time: 03/23/2023 22:35 CDT HISTORY: chest pain, [employer] 5 YEARS AGO Comparison: 12/27/2018. RESULT: Lines, tubes, and devices: Left chest pacer with intact leads. Coronary stents. Lungs and pleura: Patchy reticular and reticulonodular opacities in the right upper and bilateral lo wer lungs with central cuffing. Cardiomediastinal silhouette: Stable. Other: No acute osseous or upper abdominal finding. IMPRESSION: Pulmonary opacities may represent interstitial pulmonary edema versus respiratory bronchiolitis, over lying chronic senescent changes. Reviewed, dictated and finalized at [facility]. IMPRESSION: Pulmonary opacities may represent interstitial pulmonary edema versus respirato ry bronchiolitis, overlying chronic senescent changes.
--- NOTE | 2023-03-23 22:05 | ECG_ITS ---
Measurements Intervals [place] Rate: 93 P: NH: 0 QRS: 78 QRSD: 126 T: 62 QT: 391 QTc: 488 Interpretive Statements NORMAL SINUS RHYTHM RIGHT BUNDLE BRANCH BLOCK [120+ ms QRS DURATION, UPRIGHT V1, 40+ ms S IN I/aVL/V4/V5/V6] ABNORMAL ECG Electronically Signed On 03-24-2023 14:39:09 CDT by Mick Reaves M.D.
[2023-03-23 22:17] LABS: Basophils Absolute Auto 0.1 K/mm3 (0.0-0.1); Basophils Percent Auto 0.4 % (0.2-1.2); Eosinophils Absolute Auto 0.5 K/mm3 (0-0.3); Eosinophils Percent Auto 3.8 % (0-4.4); Hematocrit 44.2 % (37.0-47.0); Immature Granulocyte Absolute 0.05 K/mm3 (0.00-0.031); Immature Granulocyte Percent A 0.4 % (0-0.5); Lymphocytes Absolute Auto 1.06 K/mm3 (0.9-3.2); Lymphocytes Percent Auto 8.9 % (18.3-44.2); Mean Corpuscular HGB Conc 31.7 g/dl (32-36); Mean Corpuscular Hemoglobin 27.7 pg (26-34); Mean Corpuscular Volume 87.4 fl (80-100); Mean Platelet Volume 10.4 fl (7.4-10.4); Monocytes Percent Auto 8.6 % (2.6-8.5); Neutrophils Absolute Auto 9.3 K/mm3 (1.3-6.7); Neutrophils Percent Auto 77.9 % (45.5-73.1); Platelet Count Result 224 k/mm3 (150-375); Red Blood Count 5.06 M/mm3 (4.2-5.4); Red Cell Distribution Width 17.2 % (11.5-14.5); White Blood Count 11.9 K/mm3 (4.5-10.0)
[2023-03-23 22:27] LABS: Alanine Aminotransferase 30 U/L (6-35); Albumin Level 4.9 g/dL (3.5-5.1); Alkaline Phosphatase 72 U/L (38-126); Anion Gap 15 mmol/L (8-16); Aspartate Amino Transferase 67 U/L (14-36); Bilirubin,Total 1.1 mg/dL (0.2-1.3); Blood Urea Nitrogen 24 mg/dL (7-17); Calcium 9.2 mg/dL (8.4-10.2); Carbon Dioxide 22 mmol/L (22-30); Chloride 100 mmol/L (98-107); Estimated CRCL calculation 37 ml/min; Estimated Glomerular Filt Rate 48; Glucose 292 mg/dL (65-110); Lipase 69 U/L (23-300); Potassium 4.1 mmol/L (3.4-5.0); Sodium 137 mmol/L (137-145)
[2023-03-23 22:30] LABS: INR 1.1; Prothrombin Time 13.5 Seconds (11.1-14.7)
[2023-03-23 22:31] LABS: Partial Thromboplastin Time 28.5 SECONDS (22.3-36.8)
--- NOTE | 2023-03-23 23:05 | ED.SOB ---
HPI - SOB/Dyspnea General Chief Complaint: Shortness of Breath/Dyspnea Stated Complaint: shortness of breath Time Seen by Provider: 03/23/23 22:22 Source: patient, family and RN notes reviewed Mode of arrival: wheelchair Limitations: clinical condition History of Present Illness HPI Narrative: This is a 77 year old female with history of COPD, CAD s/p stent who presents for evaluation of shortness of breath. Patient's daughter states patient has appeared to having worsening shortness of breath throughout the day. She reports noticing that the patient seemed to be gurgling. She also reports intermittent decreased in responsiveness. Patient has been having mild cough for a few days but she thought it was due to allergies. Patient has been taking cough medication. She denies fever, vomiting or diarrhea. Patient does reports nonradiating chest pain but she is unsure when her pain started. She was found to be 85% on room air in triage. Her daughter states patient had a coronary stent placed 3 weeks ago in [place], [place]. 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 Related Data Home Medications Medication Instructions Recorded Confirmed ascorbic acid (vitamin C) 250 mg 250 mg PO DAILY 01/26/20 01/26/20 tablet (Vitamin C) atorvastatin 80 mg tablet 80 mg PO HS 01/26/20 01/26/20 calcium carbonate 600 mg-vitamin 1 tablet PO DAILY 01/26/20 01/26/20 D3 10 mcg (400 unit) chewable tablet (Calcium 600 with Vitamin D3) cholecalciferol (vitamin D3) 125 125 mcg PO DAILY 01/26/20 01/26/20 mcg (5,000 unit) tablet (Vitamin D3) cyanocobalamin (vitamin B-12) 1,000 mcg PO DAILY 01/26/20 01/26/20 1,000 mcg tablet (Vitamin B-12) empagliflozin 10 mg tablet 10 mg PO QAM 01/26/20 01/26/20 (Jardiance) gabapentin 100 mg capsule 100 mg PO DAILY PRN Foot pain 01/26/20 01/26/20 isosorbide mononitrate 30 mg 30 mg PO BID 01/26/20 01/26/20 tablet,extended release 24 hr metformin 500 mg tablet 500 mg PO BID 01/26/20 01/26/20 metoprolol succinate 25 mg capsule 25 mg PO DAILY 02/27/20 02/27/20 sprinkle, ext. release 24 hr nitroglycerin 400 mcg/spray 1 spray sublingual Q5M PRN Chest 01/26/20 01/26/20 translingual Pain omega 2-tek-cow-fish oil 1,000 mg 1 cap PO BID 01/26/20 01/26/20 (120 mg-180 mg) capsule (Fish Oil) prasugrel 10 mg tablet 10 mg PO DAILY 01/26/20 01/26/20 ranolazine 1,000 mg 1,000 mg PO Q12H 01/26/20 01/26/20 tablet,extended release,12 hr Allergies Allergy/AdvReac Type Severity Reaction Status Date / Time No Known Allergies Allergy Mild Verified 03/23/23 21:55 Review of Systems Review of Systems: ROS unobtainable: Yes unobtainable due to medical condition PMFSH Past Medical History Medical History Anxiety Arthritis Asthma Back pain CAD (coronary artery disease) Cataracts, bilateral CHF (congestive heart failure) Diabetes History of angina HLD (hyperlipidemia) HTN (hypertension) Intertrochanteric fracture of right femur (01/26/20) Metacarpal bone fracture Peripheral neuropathy Pneumonia Surgical History Surgical History History of coronary artery stent placement Has 14 stents History of permanent cardiac pacemaker placement Hx of cardiac catheterization Hx of cataract surgery bilateral eyes Family History Family History Mother Cervical cancer Sibling Diabetes mellitus Sibling Diabetes mellitus Social History Social History Social History: Patient is . She reports her niece, Lay Murdock who is an RN, lives with her. 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 No tobacco use. No alcohol use. She is a DNR. She notes she does not have a designated power of family law attorney. She has no children. Smoking status: Never smoker Alcohol intake: never Subst
[2023-03-23 23:08] LABS: NT Pro B Type Natriuretic Pept 2120 pg/mL (19.9-100)
[2023-03-23 23:21] LABS: Lactic Acid Reflex 2.9 mmol/L (0.7-2.0)
[2023-03-23] MEDS: LEVALBUTEROL NEB 1.25 MG/3 ML INHALATION (23:32)
[2023-03-23] MEDS: IPRATROPIUM BR 0.02% INH SOLN 0.5 MG/2.5 ML VIAL INHALATION (23:32)
[2023-03-23 23:40] LABS: Base Excess ABG -5.7 mEq/l (+/-2.0); Carboxyhemoglobin 0.9 % THb (0-2.0); Fractional Inspired Oxygen 28 %; HCO3 ABG 18.2 mEq/l (22.0-26.0); Methemoglobin ABG 0.2 %THb (0-1.5); Oxygen Content ABG 17.6 %vol (16.0-22.0); Oxygen Saturation ABG 92.4 % (95.0-100.0); Oxyhemoglobin 89.3 % THb (90.0-100.0); PCO2 ABG 31.2 mmHg (35.0-45.0); PO2 ABG 63.8 mmHg (80.0-100.0); PO2 FiO2 Ratio Arterial Blood 2.28 %; Reduced Hemoglobin 9.6 %THb (0-5.0); pH ABG 7.384 (7.350-7.450)
[2023-03-23 23:41] LABS: Modified Allen's Test Pass; Site Drawn LEFT RADIAL
[2023-03-23 23:42] LABS: Influenza A QL RT-PCR Negative (Negative); Influenza B QL RT-PCR Negative (Negative); SARS-CoV-2 RNA PCR Negative (Negative)
[2023-03-24] VITALS (15 sets, daily range): BP systolic 105–120; BP diastolic 43–75; PULSE 77–96; RESP 19–35; O2SAT 94–100
[2023-03-24] MEDS: FUROSEMIDE INJ 40 MG/4 ML VIAL IV PUSH (00:42)
[2023-03-24] MEDS: HEPARIN SODIUM 5,000 UNITS/ML VIAL 4000 UNITS IV PUSH (00:42)
[2023-03-24] MEDS: ASPIRIN 81 MG CHEWABLE TABLET 324 MG PO (00:42)
[2023-03-24] MEDS: HEPARIN SOD/D5W 100 UNITS/ML 25,000 UNITS/250 ML BAG 8 UNITS IV CONT (00:43)
[2023-03-24 02:05] LABS: Reflex Lactic Acid Yes or No Add Lactic
--- NOTE | 2023-03-24 02:08 | PC.NURSE ---
Report to Gerri MCCARTHY at [facility] in [facility].
--- NOTE | 2023-03-24 02:32 | ECG_ITS ---
Measurements Intervals [place] Rate: 94 P: 51 AR: 152 QRS: 86 QRSD: 129 T: 82 QT: 383 QTc: 480 Interpretive Statements SINUS RHYTHM WITH SINUS ARRHYTHMIA POSSIBLE LEFT ATRIAL ENLARGEMENT [-0.1mV P WAVE IN V1/V2] RIGHT BUNDLE BRANCH BLOCK [120+ ms QRS DURATION, UPRIGHT V1, 40+ ms S IN I/aVL/V4/V5/V6] ABNORMAL ECG COMPARED TO ECG 03/23/2023 22:02:47 SINUS ARRHYTHMIA NOW PRESENT Electronically Signed On 03-24-2023 14:40:17 CDT by Mick Reaves M.D.
[2023-03-24 02:50] LABS: Lactic Acid 2.3 mmol/L (0.7-2.0)
== END 2023-03-24 04:19 | disposition short-term general hospital (02) ==
PROVIDERS: Physician Assistant; Emergency Provider General Practice; PCP Family Medicine
DX: I21.3 ST elevation (STEMI) myocardial infarction of unspecified site (principal); I11.0 Hypertensive heart disease with heart failure; I50.9 Heart failure, unspecified; Z20.822 Contact with and (suspected) exposure to COVID-19; F41.9 Anxiety disorder, unspecified; M19.90 Unspecified osteoarthritis, unspecified site; J45.909 Unspecified asthma, uncomplicated; I25.10 Atherosclerotic heart disease of native coronary artery without angina pectoris; E11.9 Type 2 diabetes mellitus without complications; E78.5 Hyperlipidemia, unspecified; Z79.84 Long term (current) use of oral hypoglycemic drugs
CPT/HCPCS: 36415; 36600; 71046; 80053; 82375; 82805; 83050; 83605; 83690; 83880; 84484; 85025; 85610; 85730; 87040; 87636; 93005; 94640; 96374; 99285; A9270; J1644; J1940